=== PATIENT | male | born 1935 | race Caucasian/White ===

== ENCOUNTER → 2017-02-05 | Outpatient (CLI) | payer MEDICARE | END | disposition home or self-care (01) | LOC: RADCTMAIN 17:35 | PROVIDERS: ATTEND Otolaryngology | DX: Z01.812 Encounter for preprocedural laboratory examination (principal); D49.2 Neoplasm of unspecified behavior of bone, soft tissue, and skin | CPT/HCPCS: 82565; 84520 ==

== ENCOUNTER → 2017-02-15 | Outpatient (CLI) | payer MEDICARE ==
--- NOTE | 2017-02-15 15:53 | CT ---
"EXAMINATION TYPE: CT soft tissue neck wo con DATE OF EXAM: 02/15/2017 HISTORY: RIGHT EAR LUMP, SWELLING, AND REDNESS. HISTORY OF RIGHT EAR CANCER. COMPARISON: NONE CT DLP: 390 mGycm. Automated Exposure Control for Dose Reduction was Utilized. TECHNIQUE: CT scan of the neck is performed without contrast as the patient had abnormal labs despit e hydration. FINDINGS: Soft tissues: There is diffuse abnormal lobular thickening of the soft tissues and hyperemia of the c artilage of the right helix, tragus, and to a lesser degree of the antitragus. There is no local jose opathy with few nonenlarged adjacent lymph nodes. Few nonenlarged lymph nodes are also seen of the an terior and posterior cervical chains of the neck. Surgical clips are seen near the angle of the elizabeth ble and carotid bulb. A single surgical clip is seen just abutting the wall of the carotid bulb. Parotid/submandibular glands: No gross abnormality seen. 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 Both common carotid arteries are large in caliber with only minimal calcific atheromatous hart es. Atherosclerosis is seen of the supraclinoid and cavernous portions of the internal carotid arteri es. Small outpouching of the thoracic aorta likely represents a ductus diverticulum. Osseous Structures: Multilevel degenerative disc disease is seen of the cervical spine in addition to facet arthropathy and uncovertebral hypertrophy. 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 IMPRESSION: 1. Extensive lobular thickening of the helix, tragus, and to a lesser degree of the antitragus withou t local adenopathy in the head or neck. Findings are compatible with the patient's provided history o f right ear cancer. 2. 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 Vascular surgery consultation is recommended. A Red message has been communicated to Antoni Fatima DO via the [employer] | Critical Re sult system on 02/15/2017 3:50 PM, Message ID [id number]."
== END ==
LOC: RADCTMAIN 14:18
PROVIDERS: ATTEND Otolaryngology
DX: Z01.818 Encounter for other preprocedural examination (principal); D49.2 Neoplasm of unspecified behavior of bone, soft tissue, and skin
CPT/HCPCS: 36415; 70490; 82565; 84520

== ENCOUNTER → 2017-02-15 | Outpatient (CLI) | payer MEDICARE ==
[~2017-02-15] MED LIST: SODIUM CHLORIDE 0.45% 1,000 ML IV SCH; SODIUM CHLORIDE 0.9% 1,000 ML IV SCH
[2017-02-15 12:54] VITALS: BP 143/90; PULSE 611; RESP 20; TEMP 98.3
== END | disposition home or self-care (01) ==
LOC: PROCWHC3 12:14
PROVIDERS: ATTEND Otolaryngology
DX: E86.0 Dehydration (principal)
CPT/HCPCS: 96360

== ENCOUNTER → 2017-03-01 | Outpatient (CLI) | payer MEDICARE ==
[2017-03-01 14:25] LABS: EKG EKG PERFORMED
[2017-03-01 15:03] LABS: Anion Gap 9 mmol/L; Carbon Dioxide 23 mmol/L (22-30); Chloride 104 mmol/L (98-107); Potassium 5.1 mmol/L (3.5-5.1); Sodium 136 mmol/L (137-145)
== END | disposition home or self-care (01) ==
LOC: LABPAT 14:15
PROVIDERS: ATTEND Otolaryngology
DX: Z01.810 Encounter for preprocedural cardiovascular examination (principal); D49.2 Neoplasm of unspecified behavior of bone, soft tissue, and skin; I10 Essential (primary) hypertension; Z79.899 Other long term (current) drug therapy
CPT/HCPCS: 80051; 93005

== ENCOUNTER 2017-03-04 10:59 | Day surgery (SDC) | payer MEDICARE ==
[2017-03-02 18:43] VITALS: BMI 32.3
[~2017-03-04 10:59] MED LIST changes: +DEXAMETHASONE SOD PHOSPHATE 10 MG/ML 1 ML VIAL IV ONE; +FAMOTIDINE 20 MG/2 ML VIAL IV ONE; +LIDOCAINE 1% 20 ML VIAL (10MG/ML) FOR IV START INTRADERMA PRN; +ONDANSETRON 4 MG/2 ML VIAL IVP ONE; -SODIUM CHLORIDE 0.45% 1,000 ML IV SCH; -SODIUM CHLORIDE 0.9% 1,000 ML IV SCH; +ceFAZolin 2 GM in SODIUM CHLORIDE 0.9% 100 ML IVPB ONE
[2017-03-04] MEDS: LACTATED RINGERS 1,000 ML IV SCH ×2 (12:06→13:36)
[2017-03-04 12:40] LABS: Calcium 9.1 mg/dL (8.4-10.2); Potassium 5.2 mmol/L (3.5-5.1)
[2017-03-04] MEDS ORDERED: MIDAZOLAM 2 MG/2 ML VIAL ONE (13:40)
[2017-03-04] MEDS ORDERED: LIDOCAINE 1% INJ 10MG/ML (20 ML MDV) ONE (13:40)
[2017-03-04] MEDS ORDERED: PROPOFOL 10 MG/ML 20 ML VIAL IV ONE (13:40)
[2017-03-04] MEDS ORDERED: SUCCINYLCHOLINE CHLORIDE VIAL 200 MG/10 ML VIAL IV ONE (13:40)
[2017-03-04] MEDS ORDERED: ePHEDrine SULFATE/0.9% NACL/PF 50 MG/5 ML SYRINGE IV ONE (13:40)
[2017-03-04] MEDS ORDERED: fentaNYL (PF) 50 MCG/ML 2 ML AMP ONE (13:40)
[2017-03-04] MEDS ORDERED: LIDOCAINE 2%-EPI 1:100,000 20 ML VIAL SQ ONE ×2 (14:04)
[2017-03-04] MEDS ORDERED: BACITRACIN 500 UNIT/GM OINT 28.4 GM TUBE TOPICAL ONE (14:55)
[2017-03-04 15:15] VITALS: TEMP 97.2
--- NOTE | 2017-03-04 15:44 | P.OP ---
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 Implants: Anesthesia: GETA Surgeon: Antoni Fatima Estimated Blood Loss (ml): 25 Pathology: other (Right ear) Condition: stable Disposition: PACU Indications for Procedure: This patient is a malignancy of his right ear that has been present for over 10 years. Surgical removal was advised. All risks, benefits, and alternative therapies were discussed in detail. Consent was obtained and all questions were answered. Operative Findings: Patient had a 10 x 4 cm large right auricular skin cancer engulfing the entire ear Description of Procedure: This patient was taken to the operative room and placed in the supine position. A general inhalation anesthetic was administered the patient by mask and subsequently intubated with a cuffed endotracheal tube by the department of anesthesia with a functioning IV line in place. Patient was monitored throughout the entire case by the department of anesthesia. The right ear and face were sterilely prepped and draped in usual fashion. The ear was anesthetized with lidocaine 1% with epinephrine 1 100,000. With use of a 15 blade and cautery we remove the ear from the skull base following the auricular crease. The ear was removed completely and sent for permanent section. I did remove superior and inferiorly based margin for analysis. We marked these with those sutures which are adjacent sutures. Hemostasis was obtained with use of cauterization and suture. We then had a large defect with a open ear canal. All visible auricle was removed. We then elevated the postauricular and superior auricular skin we rotated that into position we resected the burrows triangles and we closed the flap deeply with a 3-0 PDS we closed the skin with a 40 rapid Vicryl. We then found that the meatus was stenotic and we did a meatal plasty by resecting the anterior auricular cartilage. We made an H-type incision resected the cartilage and rotated the tragal skin into the meatus for the meatus to stay open. The patient tolerated this well pressure dressing was applied and a follow-up is scheduled for 1 week.
[2017-03-04 16:11] VITALS: PULSE 61
[2017-03-04 16:26] VITALS: BP 136/72; RESP 18
== END 2017-03-04 16:35 | disposition home or self-care (01) ==
LOC: OR 10:59
PROVIDERS: ATTEND Otolaryngology
DX: C44.222 Squamous cell carcinoma of skin of right ear and external auricular canal (principal); L57.8 Other skin changes due to chronic exposure to nonionizing radiation; L57.0 Actinic keratosis; Q16.1 Congenital absence, atresia and stricture of auditory canal (external); I10 Essential (primary) hypertension; I25.10 Atherosclerotic heart disease of native coronary artery without angina pectoris; I73.9 Peripheral vascular disease, unspecified; N28.9 Disorder of kidney and ureter, unspecified; Z79.899 Other long term (current) drug therapy
CPT/HCPCS: 88305; 80048; 69120; 69310; J2250; J0330; J1100; J0690; J2405; J2001; J3010; J2704

== ENCOUNTER → 2017-08-18 | Outpatient (CLI) | payer MEDICARE ==
[2017-08-18 14:38] LABS: Basophils % (A) 0 %; Eosinophils # (A) 0.2 k/uL (0-0.7); Eosinophils % (A) 2 %; HCT 47.4 % (39.0-53.0); HGB 15.1 gm/dL (13.0-17.5); Lymphocytes # (A) 1.4 k/uL (1.0-4.8); Lymphocytes % (A) 18 %; MCH 28.9 pg (25.0-35.0); MCHC 31.9 g/dL (31.0-37.0); MCV 90.5 fL (80.0-100.0); Mean Platelet Volume 6.6; Monocytes # (A) 0.5 k/uL (0-1.0); Monocytes % (A) 6 %; Neutrophils % (A) 73 %; Platelet Count 272 k/uL (150-450); RBC 5.24 m/uL (4.30-5.90); RDW 13.5 % (11.5-15.5); WBC 8.2 k/uL (3.8-10.6)
[2017-08-18 14:45] LABS: Calcium 9.3 mg/dL (8.4-10.2); Magnesium 2.3 mg/dL (1.6-2.3); Phosphorus 3.7 mg/dL (2.5-4.5); Potassium 5.4 mmol/L (3.5-5.1); Total Bilirubin 0.5 mg/dL (0.2-1.3); Total Protein 7.3 g/dL (6.3-8.2); Uric Acid 6.9 mg/dL (3.5-8.5)
[2017-08-18 15:16] LABS: PSA Annual Screen 0.36 ng/mL (0.00-4.00)
[2017-08-18 18:56] LABS: Vitamin D 25 Hydroxy 12.7 ng/mL (30.0-100.0)
[2017-08-18 21:06] LABS: Parathyroid Hormone Intact 103.3 pg/mL (14.0-72.0)
== END | disposition home or self-care (01) ==
LOC: LABWHC1 13:36
PROVIDERS: ATTEND Family Medicine
DX: C67.9 Malignant neoplasm of bladder, unspecified (principal); I12.9 Hypertensive chronic kidney disease with stage 1 through stage 4 chronic kidney disease, or unspecified chronic kidney disease; N18.3 Chronic kidney disease, stage 3 (moderate); R35.1 Nocturia; Z12.5 Encounter for screening for malignant neoplasm of prostate
CPT/HCPCS: 80053; 83735; 84100; 84550; 85025; 82306; 83970; 82043; 82570; 36415; G0103

== ENCOUNTER → 2017-11-19 | Outpatient (CLI) | payer MEDICARE ==
[2017-11-19 15:39] LABS: Basophils % (A) 0 %; Eosinophils # (A) 0.4 k/uL (0-0.7); Eosinophils % (A) 5 %; HGB 13.3 gm/dL (13.0-17.5); Lymphocytes # (A) 1.3 k/uL (1.0-4.8); Lymphocytes % (A) 15 %; MCH 29.1 pg (25.0-35.0); MCHC 34.2 g/dL (31.0-37.0); MCV 85.1 fL (80.0-100.0); Mean Platelet Volume 6.9; Monocytes # (A) 0.6 k/uL (0-1.0); Monocytes % (A) 7 %; Neutrophils # (A) 5.9 k/uL (1.3-7.7); Neutrophils % (A) 70 %; Platelet Count 302 k/uL (150-450); RBC 4.58 m/uL (4.30-5.90); RDW 13.7 % (11.5-15.5); WBC 8.5 k/uL (3.8-10.6)
[2017-11-19 15:51] LABS: Albumin 3.7 g/dL (3.5-5.0); Calcium 9.4 mg/dL (8.4-10.2); Potassium 5.6 mmol/L (3.5-5.1); Total Bilirubin 0.6 mg/dL (0.2-1.3); Total Protein 6.6 g/dL (6.3-8.2)
== END | disposition home or self-care (01) ==
LOC: LABWHC1 15:22
PROVIDERS: ATTEND Radiology Radiation Oncology
DX: C07 Malignant neoplasm of parotid gland (principal); I95.9 Hypotension, unspecified
CPT/HCPCS: 36415; 80053; 85025

== ENCOUNTER 2017-11-24 16:17 | Inpatient (IN) | payer MEDICARE ==
[2017-11-24] MEDS ORDERED: SODIUM CHLORIDE 0.9% 1,000 ML IV STA (16:46)
[2017-11-24] MEDS: SODIUM CHLORIDE 0.9% 1,000 ML IV ONE (16:47)
--- NOTE | 2017-11-24 16:51 | ED ---
General Adult HPI - General Chief complaint: Weakness Stated complaint: Hypotension Time Seen by Provider: 11/24/17 16:36 Source: patient, family, RN notes reviewed Mode of arrival: wheelchair Limitations: no limitations - History of Present Illness Initial comments: Patient is a pleasant 82-year-old male presenting to the emergency department with reported low blood pressure. Patient is a very poor historian. Patient states he does feel somewhat weak today. Patient does admit to having some low back pain however states this is chronic for him for sometime between 1 and 2 years. Patient has known cancer of the right side of his neck. Patient is unclear if there is any other cancer or any details regarding this. Patient does reportedly received radiation therapy for this. No family is present - Related Data Home Medications Medication Instructions Recorded Confirmed Metoprolol Tartrate [Lopressor] 50 mg PO BID 02/15/17 11/24/17 Ergocalciferol [Vitamin D2] 50,000 unit PO Q7D 11/24/17 11/24/17 Lisinopril [Prinivil] 5 mg PO HS 11/24/17 11/24/17 Allergies Allergy/AdvReac Type Severity Reaction Status Date / Time No Known Allergies Allergy Verified 11/24/17 17:14 Review of Systems ROS Statement: Those systems with pertinent positive or pertinent negative responses have been documented in the HPI. ROS Other: All systems not noted in ROS Statement are negative. Constitutional: Denies: fever Eyes: Denies: eye pain ENT: Denies: ear pain Respiratory: Denies: cough Cardiovascular: Denies: chest pain Endocrine: Reports: fatigue Gastrointestinal: Denies: abdominal pain Genitourinary: Denies: dysuria Musculoskeletal: Reports: back pain Skin: Denies: rash Neurological: Denies: headache Past Medical History Past Medical History: Cancer, Renal Disease Additional Past Medical History / Comment(s): throat, bladder ,ear cancer, History of Any Multi-Drug Resistant Organisms: None Reported Past Surgical History: Bladder Surgery Past Psychological History: No Psychological Hx Reported Smoking Status: Former smoker Past Alcohol Use History: None Reported Past Drug Use History: None Reported General Exam Limitations: no limitations General appearance: alert, in no apparent distress Head exam: Present: atraumatic Eye exam: Present: normal appearance ENT exam: Present: normal oropharynx Neck exam: Present: other (Large right lateral neck mass with central ulcers. Size is approximately the size of a lemon.) Respiratory exam: Present: normal lung sounds bilaterally Cardiovascular Exam: Present: regular rate, normal rhythm GI/Abdominal exam: Present: soft, hernia (Reducible hernia). Absent: tenderness Rectal exam: Present: black stool Extremities exam: Present: normal inspection Back exam: Present: tenderness (Mild tenderness lower lumbar spine) Neurological exam: Present: alert Expanded Patient oriented to: Present: person, place. Absent: time Speech: Present: fluid speech Motor strength exam: RUE: 5, LUE: 5, RLE: 5, LLE: 5 Psychiatric exam: Present: normal affect, normal mood Skin exam: Present: normal color Course Vital Signs 11/24/17 11/24/17 11/24/17 16:22 16:51 17:35 Temperature 98.9 F Pulse Rate 55 L 53 L 54 L Respiratory 24 20 20 Rate Blood Pressure 79/53 136/55 133/60 O2 Sat by Pulse 100 100 100 Oximetry 11/24/17 11/24/17 18:40 19:08 Temperature Pulse Rate 57 L 56 L Respiratory 18 18 Rate Blood Pressure 115/54 94/60 O2 Sat by Pulse 98 100 Oximetry - Reevaluation(s) Reevaluation #1: 11/24/17 18:35 Family now is present and state patient is a no code. They wanted no CPR and no intubation/life-support. They state patient does have advanced cancer of the neck however they are unclear what stage it is. 11/24/17 19:36 Case was discussed in detail with Dr. Saucedo, who will admit for Dr. Navarro. Consult with gastroenterology. EKG Findings - EKG Comments: EKG Findings:: Junctional rhythm at 54. QRS 112. QT 452. QTC 428. Normal axis. Normal QRS. No acute ST change. Medical Decision Making - Lab Data Result diagrams: 11/24/17 16:41 11/24/17 16:41 Lab Results 11/24/17 11/24/17 11/24/17 Range/Units 16:41 16:41 16:41 WBC 13.1 H (3.8-10.6) k/uL RBC 2.86 L (4.30-5.90) m/uL Hgb 8.3 L D (13.0-17.5) gm/dL Hct 24.4 L (39.0-53.0) % MCV 85.3 (80.0-100.0) fL MCH 29.0 (25.0-35.0) pg MCHC 34.0 (31.0-37.0) g/dL RDW 14.3 (11.5-15.5) % Plt Count 365 (150-450) k/uL Neutrophils % 84 % Lymphocytes % 9 % Monocytes % 4 % Eosinophils % 2 % Basophils % 0 % Neutrophils # 11.0 H (1.3-7.7) k/uL Lymphocytes # 1.1 (1.0-4.8) k/uL Monocytes # 0.6 (0-1.0) k/uL Eosinophils # 0.2 (0-0.7) k/uL Basophils # 0.0 (0-0.2) k/uL PT (9.0-12.0) sec INR (<1.2) APTT (22.0-30.0) sec Sodium 124 L (137-145) mmol/L Potassium 5.8 H (3.5-5.1) mmol/L Chloride 92 L (98-107) mmol/L Carbon Dioxide 19 L (22-30) mmol/L Anion Gap 13 mmol/L BUN 104 H* (9-20) mg/dL Creatinine 2.00 H (0.66-1.25) mg/dL Est GFR (CKD-EPI)AfAm 35 (>60 ml/min/1.73 sqM) Est GFR (CKD-EPI)NonAf 30 (>60 ml/min/1.73 sqM) Glucose 122 H (74-99) mg/dL Plasma Lactic Acid Butch (0.7-2.0) mmol/L Calcium 9.5 (8.4-10.2) mg/dL Phosphorus 3.6 (2.5-4.5) mg/dL Magnesium 2.1 (1.6-2.3) mg/dL Total Bilirubin 0.4 (0.2-1.3) mg/dL AST 18 (17-59) U/L ALT 25 (21-72) U/L Alkaline Phosphatase 65 (38-126) U/L Total Creatine Kinase 22 L (55-170) U/L CK-MB (CK-2) 0.8 (0.0-2.4) ng/mL CK-MB (CK-2) Rel Index 3.6 Troponin I <0.012 (0.000-0.034) ng/mL Total Protein 5.7 L (6.3-8.2) g/dL Albumin 3.2 L (3.5-5.0) g/dL Stool Occult Blood (Negative) 11/24/17 11/24/17 11/24/17 Range/Units 16:41 16:41 18:30 WBC (3.8-10.6) k/uL RBC (4.30-5.90) m/uL Hgb (13.0-17.5) gm/dL Hct (39.0-53.0) % MCV (80.0-100.0) fL MCH (25.0-35.0) pg MCHC (31.0-37.0) g/dL RDW (11.5-15.5) % Plt Count (150-450) k/uL Neutrophils % % Lymphocytes % % Monocytes % % Eosinophils % % Basophils % % Neutrophils # (1.3-7.7) k/uL Lymphocytes # (1.0-4.8) k/uL Monocytes # (0-1.0) k/uL Eosinophils # (0-0.7) k/uL Basophils # (0-0.2) k/uL PT 10.2 (9.0-12.0) sec INR 1.0 (<1.2) APTT 23.5 (22.0-30.0) sec Sodium (137-145) mmol/L Potassium (3.5-5.1) mmol/L Chloride (98-107) mmol/L Carbon Dioxide (22-30) mmol/L Anion Gap mmol/L BUN (9-20) mg/dL Creatinine (0.66-1.25) mg/dL Est GFR (CKD-EPI)AfAm (>60 ml/min/1.73 sqM) Est GFR (CKD-EPI)NonAf (>60 ml/min/1.73 sqM) Glucose (74-99) mg/dL Plasma Lactic Acid Butch 1.1 (0.7-2.0) mmol/L Calcium (8.4-10.2) mg/dL Phosphorus (2.5-4.5) mg/dL Magnesium (1.6-2.3) mg/dL Total Bilirubin (0.2-1.3) mg/dL AST (17-59) U/L ALT (21-72) U/L Alkaline Phosphatase (38-126) U/L Total Creatine Kinase (55-170) U/L CK-MB (CK-2) (0.0-2.4) ng/mL CK-MB (CK-2) Rel Index Troponin I (0.000-0.034) ng/mL Total Protein (6.3-8.2) g/dL Albumin (3.5-5.0) g/dL Stool Occult Blood Positive (Negative) - Radiology Data Radiology results: image reviewed (Lumbar spine x-ray shows no acute fracture or dislocation. There is degenerative disc disease. Anterolisthesis L4/L5. Chest x-ray shows no acute process.) Disposition Clinical Impression: Prerenal azotemia, GI hemorrhage Disposition: ADMITTED IP TO THIS [facility] Condition: Serious Referrals: Rossana Navarro MD [Primary Care Provider] - 1-2 days Decision Time: 19:36
[2017-11-24 17:09] LABS: Albumin 3.2 g/dL (3.5-5.0); Basophils % (A) 0 %; Calcium 9.5 mg/dL (8.4-10.2); Eosinophils # (A) 0.2 k/uL (0-0.7); Eosinophils % (A) 2 %; HCT 24.4 % (39.0-53.0); Lymphocytes # (A) 1.1 k/uL (1.0-4.8); Lymphocytes % (A) 9 %; MCV 85.3 fL (80.0-100.0); Magnesium 2.1 mg/dL (1.6-2.3); Monocytes # (A) 0.6 k/uL (0-1.0); Monocytes % (A) 4 %; Neutrophils % (A) 84 %; Phosphorus 3.6 mg/dL (2.5-4.5); Platelet Count 365 k/uL (150-450); Potassium 5.8 mmol/L (3.5-5.1); RBC 2.86 m/uL (4.30-5.90); RDW 14.3 % (11.5-15.5); Total Bilirubin 0.4 mg/dL (0.2-1.3); Total Protein 5.7 g/dL (6.3-8.2); WBC 13.1 k/uL (3.8-10.6)
[2017-11-24 17:11] LABS: HGB 8.3 gm/dL (13.0-17.5); Partial Thromboplastin Time 23.5 sec (22.0-30.0); Prothrombin Time 10.2 sec (9.0-12.0)
[2017-11-24 17:17] LABS: Creatine Kinase 22 U/L (55-170)
[2017-11-24 17:30] LABS: Creatine Kinase MB 0.8 ng/mL (0.0-2.4); Troponin I <0.012 ng/mL (0.000-0.034)
[2017-11-24] MEDS ORDERED: MORPHINE SULFATE 4 MG/ML SYRINGE IVP STA ×2 (17:35→20:42)
--- NOTE | 2017-11-24 17:38 | XR ---
EXAMINATION TYPE: XR lumbar spine 2 or 3V DATE OF EXAM: 11/24/2017 CLINICAL HISTORY: pain TECHNIQUE: Three views of the lumbar spine are submitted. COMPARISON: None. FINDINGS: There are 5 lumbar type vertebral bodies identified. The lumbar spine shows satisfactory alignment w ithout evidence of acute fracture or dislocation. Vertebral body heights are within normal limits. Severe degenerative disc space narrowing L4-5 and L5-S1 as well as facet joints. 4.5 mm anterolisthes is L4 and L5. The overlying soft tissue appears unremarkable. IMPRESSION: No acute fracture or dislocation is seen in the lumbar spine. ICD 10 NO FRACTURE, INITIAL EVALUATION
--- NOTE | 2017-11-24 17:39 | XR ---
EXAMINATION TYPE: XR chest 2V DATE OF EXAM: 11/24/2017 COMPARISON: NONE HISTORY: Shortness of breath TECHNIQUE: Frontal and lateral views of the chest are obtained. FINDINGS: Scattered senescent parenchymal changes noted. Hyperinflation compatible with COPD. Ectasia thoracic aorta. No evidence for infiltrate. No evidence for atelectasis. Heart size is stable. Mediastinal structures are stable and grossly unremarkable. No evidence for hilar prominence. Degenerative changes dorsal spine. IMPRESSION: 1. No evidence for acute pulmonary disease.
[2017-11-24] MEDS ORDERED: PANTOPRAZOLE 40 MG/10 ML VIAL IVP STA (18:34)
[2017-11-24] MEDS ORDERED: NALOXONE 0.4 MG/ML 1 ML VIAL IV PRN (19:37)
[2017-11-24] MEDS ORDERED: SODIUM CHLORIDE 0.9% 500 ML IV STA (19:40)
[2017-11-24] MEDS: SODIUM CHLORIDE 0.9% 1,000 ML IV SCH (20:52)
[2017-11-24] MEDS ORDERED: MELATONIN 3 MG TABLET PO PRN (21:57)
[2017-11-24] MEDS ORDERED: MORPHINE SULFATE 4 MG/ML SYRINGE IV PRN (21:57)
[2017-11-24] MEDS ORDERED: ACETAMINOPHEN TAB 325 MG TAB PO PRN (21:57)
[2017-11-24] MEDS ORDERED: ONDANSETRON 4 MG/2 ML VIAL IVP PRN (21:57)
[2017-11-24] MEDS: traMADol 50 MG TAB PO PRN (22:46)
--- NOTE | 2017-11-24 23:11 | CT ---
EXAMINATION TYPE: CT ChestAbdPelvis wo con DATE OF EXAM: 11/24/2017 COMPARISON: NONE HISTORY: History of kidney, bladder, ear and neck cancer. Low back pain, low hemoglobin, right lower hernia that doctor is unable to reduce, nausea nd vomiting. CT DLP: 1108.4 mGycm. Automated Exposure Control for Dose Reduction was Utilized. TECHNIQUE: CT scan of the thorax, abdomen and pelvis is performed without IV contrast. FINDINGS: Thoracic aorta is atheromatous and dilated. Descending aorta measures up to 5.5 cm. The ascending aor ta measures 4.8 cm. There is no mediastinal adenopathy. There is some patchy interstitial linear dens ity in the mid and lower lung reardon. There is no evidence of a pulmonary mass. There are multiple calcified gallstones. There is an irregular 1.5 cm hypodensity in the anterior rig ht lobe of the liver. Bile ducts are not dilated. The spleen appears normal. There is no pancreatic m ass. Upper abdominal aorta measures 6.3 cm. There is aneurysmal change in the mid and lower abdominal aorta extending into the iliac arteries. The right common iliac artery measures 4 cm. The distal abd ominal aorta measures 4 cm. There is small ventral hernia on the right side of the mid abdomen that c ontains fat. There is marked atrophy of the right kidney. Left kidney shows fairly normal size with no hydronephro sis. There is a 1 cm hypodense area in the posterior left kidney. There is no retroperitoneal adenopa thy. There is no ascites. There is a catheter in the urinary bladder. There is fluid level in the uri nary bladder. I see no intestinal wall thickening. There are no dilated loops. There is no ascites. T horacic and lumbar spine appear intact. CONCLUSION: Fibrotic changes and atelectasis in the mid and lower lung reardon. Cardiomegaly. 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 Calcified gallstones. No dilated ducts. Atrophic right kidney. Hypodense nonspecific small area in th e posterior left kidney. Left renal ultrasound might be helpful for further evaluation. Hypodense ant erior focus in the right lobe of the liver is small and is of uncertain clinical significance. Small right-sided ventral hernia. Irregular thickening of the right side of the urinary bladder. Bladder is not well evaluated. Bladder is nondistended. This could relate to tumor.
[2017-11-24 23:14] LABS: Basophils % (A) 0 %; Eosinophils # (A) 0.2 k/uL (0-0.7); Eosinophils % (A) 2 %; HGB 7.4 gm/dL (13.0-17.5); Lymphocytes # (A) 1.1 k/uL (1.0-4.8); Lymphocytes % (A) 12 %; MCH 28.6 pg (25.0-35.0); MCV 89.5 fL (80.0-100.0); Mean Platelet Volume 6.8; Monocytes # (A) 0.6 k/uL (0-1.0); Monocytes % (A) 6 %; Neutrophils # (A) 7.1 k/uL (1.3-7.7); Neutrophils % (A) 78 %; Platelet Count 309 k/uL (150-450); RBC 2.57 m/uL (4.30-5.90); RDW 14.6 % (11.5-15.5); WBC 9.1 k/uL (3.8-10.6)
[2017-11-24 23:25] LABS: Albumin 2.8 g/dL (3.5-5.0); Calcium 8.8 mg/dL (8.4-10.2); Potassium 5.8 mmol/L (3.5-5.1); Total Bilirubin 0.4 mg/dL (0.2-1.3); Total Protein 5.2 g/dL (6.3-8.2)
[2017-11-24] MEDS ORDERED: SODIUM CHLORIDE 0.9% 500 ML IV ONE (23:32)
[2017-11-24] MEDS ORDERED: CALCIUM CHLORIDE 1,000 MG in SODIUM CHLORIDE 0.9% 100 ML IVPB STA (23:33)
[2017-11-24] MEDS ORDERED: SODIUM POLYSTYRENE SULFONATE 15 GM/60 ML BOTTLE PO STA (23:35)
--- NOTE | 2017-11-24 23:38 | P.HPIM ---
History of Present Illness H&P Date: 11/24/17 Chief Complaint: back pain Patient is an 37 yo male with a history of multiple cancers (throat, neck, ear, bladder, kidney cancer), HTN, and chronic kidney disease who presented to the ER from the radiation oncology office due to worsening back pain. In the ER he underwent an extensive evaluation. He was found to be bradycardic on arrival and hypotensive with a blood pressure 79/53. He received 1 L bolus and his blood pressure escalated to 136/55. His laboratory analysis showed a leukocytosis of 13.1, hemoglobin of 8.3 (was 13.3 11/19/17), hyponatremia with a sodium of 124, potassium 5.8, chloride 92, carbon dioxide 19 , BUN 104, and creatinine of 2. He underwent a chest x-ray which showed no acute process. He underwent lumbar spine radiographs which showed lumbar disc disease and arthritis. He then received 2 doses of morphine for pain control and was admitted to the selective care unit for further monitoring. Patient seen and examined the selective care unit with nursing present. He states that he has been having back and neck pain. Today he became so severe that he could not handle it anymore and he therefore came to the emergency department. He reports that his back pain is in his lower spine more on the right. It is intermittent and has been worsening over the last month. He is unable to tell me more about the pain because he says "I can't remember". He states that his memory has been getting worse since receiving radiation for his tumor on his neck. He reports decreased appetite with significant weight loss. He has had nausea, any vomiting, and intermittent diarrhea. He knows that he has not been eating and drinking well. He denies any chest pain shortness of breath, lightheadedness, dizziness, presyncope, chills, fevers, and abdominal pain. Has a significant right-sided hernia which he states is unchanged and is not painful. He knows that he has problems with chronic kidney disease. He knows his PCP is Dr. Navarro but is unsure the name of his oncologist. He is unsure if he had any blood in his stools he is legally blind and cannot tell. I did talk with his granddaughter Esperanza with been helping him and his get to appointments recently. We did discuss the severity of his condition including his elevated BUN, his profound anemia, his hyperkalemia, and his low sodium levels I told her that he is critical at this point in time as it appears that he is likely bleeding somewhere but we are unsure. 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 She states that she believes it is 7 cm in nature. She has been following this at [facility]. He was determined to weak to undergo treatment for this. She states it was not in his abdominal area. He is a DO NOT RESUSCITATE. I told her we'll try to attempt to get records from [facility]. I did report to her that we can try to Scan his chest abdomen and pelvis to assess for worsening aortic aneurysm or aortic dissection however this require contrast and concern for worsening kidney function and possible need for dialysis. She would prefer to hold off on CAT scan with contrast and attempt to get an echocardiogram in the morning and cardiology consultation. She is aware that if his aorta is rapidly expanding this could be life- threatening, but is aware that he was deemed not a surgical candidate for the past. Review of Systems Positives: + Back pain, + neck pain, + decreased appetite, + weight loss, + diarrhea, + nausea, + vomiting Pertinent positives and negatives as discussed in HPI, a complete review of systems was performed and all other systems are negative. Past Medical History Past Medical History: Cancer, Renal Disease Additional Past Medical History / Comment(s): Hypertension. Throat, neck, ears , renal, and bladder cancer. Legally blind. Chronic kidney disease. 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 - Past Family History Father Family Medical History: CVA/TIA Mother Family Medical History: No Reported History Medications and Allergies Home Medications Medication Instructions Recorded Confirmed Type Metoprolol Tartrate [Lopressor] 50 mg PO BID 02/15/17 11/24/17 History Ergocalciferol [Vitamin D2] 50,000 unit PO Q7D 11/24/17 11/24/17 History Lisinopril [Prinivil] 5 mg PO HS 11/24/17 11/24/17 History Allergies Allergy/AdvReac Type Severity Reaction Status Date / Time No Known Allergies Allergy Verified 11/24/17 17:14 Physical Exam Osteopathic Statement: *. No significant issues noted on an osteopathic structural exam other than those noted in the History and Physical/Consult. Vitals: Vital Signs Temp Pulse Resp BP Pulse Ox 11/24/17 19:50 54 L 16 112/53 100 11/24/17 19:08 56 L 18 94/60 100 11/24/17 18:40 57 L 18 115/54 98 11/24/17 17:35 54 L 20 133/60 100 11/24/17 16:51 53 L 20 136/55 100 11/24/17 16:22 98.9 F 55 L 24 79/53 100 Intake and Output 11/24/17 11/24/17 11/24/17 06:59 14:59 22:59 Other: Weight 97.522 kg General: Ill-appearing, mild distress, appears at stated age, normal weight Derm: Large mass extruding from the right neck with central erosion, bleeding, and serous drainage. no unusual rashes/lesions multiple small ecchymoses, warm , dry Head: atraumatic, normocephalic, symmetric Eyes: EOMI, no lid lag, anicteric sclera, pupils equal round reactive to light ENT: Nose atraumatic, no thrush, no pharyngeal erythema, removal of right earlobe with flap placement Neck: No thyromegaly, no cervical lymphadenopathy, trachea midline, supple Mouth: no lip lesion, mucus membranes moist Cardiovascular: S1S2 reg, no murmur, positive posterior tibial pulse bilateral, no edema, capillary refill less than 2 seconds Lungs: Decreased breath sounds bilaterally, no rhonchi, no rales , no accessory muscle use Abdominal: soft, nontender to palpation, no guarding, no appreciable organomegaly, normal bowel sounds Ext: no gross muscle atrophy, muscle strength 3-4 out of 5 in all 4 extremities grossly, no contractures, Neuro: CN II-XI grossly intact, light touch intact all 4 extremities, finger to nose within normal limits, Psych: Alert, oriented to year, place, recent Mother's Day. Unable to tell me month.He is having slowed thinking, appropriate affect Results CBC & Chem 7: 11/24/17 16:41 11/24/17 16:41 Labs: Abnormal Lab Results - Last 24 Hours (Table) 11/24/17 11/24/17 11/24/17 Range/Units 16:41 16:41 16:41 WBC 13.1 H (3.8-10.6) k/uL RBC 2.86 L (4.30-5.90) m/uL Hgb 8.3 L D (13.0-17.5) gm/dL Hct 24.4 L (39.0-53.0) % Neutrophils # 11.0 H (1.3-7.7) k/uL Sodium 124 L (137-145) mmol/L Potassium 5.8 H (3.5-5.1) mmol/L Chloride 92 L (98-107) mmol/L Carbon Dioxide 19 L (22-30) mmol/L BUN 104 H* (9-20) mg/dL Creatinine 2.00 H (0.66-1.25) mg/dL Glucose 122 H (74-99) mg/dL Total Creatine Kinase 22 L (55-170) U/L Total Protein 5.7 L (6.3-8.2) g/dL Albumin 3.2 L (3.5-5.0) g/dL Comments: Lumbar [id number] reviewed EKG is reviewed by myself revealed sinus bradycardia at a rate of [address]-T wave changes. Chest x-ray: report reviewed Thrombosis Risk Factor Assmnt - DVT/VTE Prophylaxis DVT/VTE Prophylaxis: Mechanical Prophylaxis ordered - Choose All That Apply Any of the Below Risk Factors Present?: Yes Each Risk Factor Represents 3 Points: Age 75 years or older Thrombosis Risk Factor Assessment Total Risk Factor Score: 3 Thrombosis Risk Factor Assessment Level: Moderate Risk Assessment and Plan Assessment: Acute on chronic neck and low back pain with acute anemia -Check CT chest, abdomen, pelvis without contrast -we'll attempt to rule out any etiology of cancerous tumor in the abdomen or pelvis or possible compression fracture or aortic disease. I realize that aortic evaluation will be suboptimal without contrast however with his acute on chronic kidney disease family would not want to take a chance of contrast exposure at this point in time -Pain control -PT OT evaluation in a.m. if CT unrevealing Acute anemia, undetermined etiology -Patient is unable to tell me if he has had blood in his stool but did have a positive Hemoccult in the ER -IV PPI twice a day, CBC every 6 hours, consult GI -Check iron studies -Type and screen Hyponatremia, hyperkalemia, and acute kidney injury on chronic kidney disease stage III -Suspect secondary to dehydration with poor oral intake on top of MARQUES inhibitor use and possible GI bleed -IV fluids -Electrolytes every 6 hours 2 -Consult nephrology -Mayers catheter for strict I's and O's and secondary to no voiding today per granddaughter -Hold lisinopril Non-anion gap metabolic acidosis likely secondary to renal disease -Treatment as above - if acidosis does not improve with NS then consider switch to D5 with 150 sodium bicarb. Neck, throat, ER, kidney, and bladder cancer -Consult Dr. Durand -Poor prognosis Hypertension, currently hypotensive -Hold beta tri and MARQUES inhibitor -Follow blood pressures Surrogate decision-maker: - Jazmin Sandra CODE STATUS: DNR DVT prophylaxis: SCDs Discussed with: Patient, ED physicain, Nursing, Granddaughter Esperanza Anticipated discharge: 3-[address]: home with home health, ? hospice A total of 75 minutes was spent on the care of this complex patient more than 50 % of the time was spent in counseling and care coordination.
[2017-11-25] MEDS: SODIUM CHLORIDE 0.9% 1,000 ML IV ONE (00:14)
[2017-11-25] MEDS ORDERED: CYCLOBENZAPRINE 5 MG TAB PO PRN (00:26)
[2017-11-25] MEDS ORDERED: ACETAMINOPHEN IV (For NPO) 1,000 MG in EMPTY BAG 1 BAG IVPB STA (00:26)
[2017-11-25 00:47] LABS: Appearance,Urine Turbid (Clear); Bacteria,Urine Few /hpf; Bilirubin,Urine Negative (Negative); Blood,Urine Large (Negative); Color,Urine Red; Glucose,Urine (UA) Negative (Negative); Ketones,Urine Negative (Negative); Leukocyte Esterase,Urine Large (Negative); Nitrite,Urine Negative (Negative); PH, Urine 5.5 (5.0-8.0); Protein,Urine 2+ (Negative); RBC,Urine >182 /hpf (0-5); Specific Gravity,Urine 1.017 (1.001-1.035); Urobilinogen,Urine <2.0 mg/dL (<2.0); WBC,Urine >182 /hpf (0-5)
[2017-11-25] MEDS: SODIUM CHLORIDE 0.9% 1,000 ML IV SCH ×2 (03:59→11:11)
[2017-11-25] MEDS ORDERED: SODIUM CHLORIDE 0.9% 500 ML IV ONE (04:25)
--- NOTE | 2017-11-25 04:57 | P.PN ---
Progress Note - Text Progress Note Date: 11/25/17 Hospitalist Interval Note CTSP Called by nursing that patients BP dropped to 74/33. Went to see patient after orders placed for bolus. Patient seen and examined at bedside. He states that his neck pain is resolved after the last dose of medication helped. He denies lightheadedness, dizziness, SOB, chest pain, passing out. No complaints currently. No family present at bedside. Nursing had just attempted to call and granddaughter and did not receive an answer. Vital signs reviewed General: non toxic, mild distress, appears at stated age Derm: warm, dry Head: atraumatic, normocephalic, symmetric Eyes: EOMI, no lid lag, anicteric sclera Mouth: no lip lesion, mucus membranes moist Cardiovascular: S1S2 reg, no murmur, positive posterior tibial pulse bilateral, Lungs: decreased bs bilateral, no rhonchi, no rales , no accessory muscle use Psych: Alert, oriented, appropriate affect Assessment/Plan: Symptomatic anemia- NS 500 cc bolus, 2 units pRBC, stat CBC (was schedule for 5 am), vitals q 30 mins X 4. nuero checks q1 hour X 1, low thresh hold for transfer to ICU pending labs. Ensure obtaining 2 PIVs. Hematuria with possible UTI- zosyn 3.375g q 12 hours due to renal function. Urine culture, Neck Pain, currently resolved- Patient and family are poor historians of his currently illness. After complaining of neck pain earlier in the night I again reviewed medical records and found CT soft tissue neck from 02/2017 which showed a soft tissue mass and a possible aneurysm vs pseudoanurysm near the right common carotid/bulb. I ordered a urgent CT of the soft tissue of the neck, as soon as BP stable we will then proceed to CT. Had spoken with Granddaughter regarding poor prognosis earlier in the evening, she was planning on coming back up to hospital. Nursing unable to contact at this time. A total of 32 minutes of critical care time was spent on this complex patient
[2017-11-25 05:29] LABS: MCH 28.5 pg (25.0-35.0); MCHC 32.6 g/dL (31.0-37.0); MCV 87.5 fL (80.0-100.0); Platelet Count 278 k/uL (150-450); RBC 2.21 m/uL (4.30-5.90); RDW 14.7 % (11.5-15.5); WBC 7.6 k/uL (3.8-10.6)
[2017-11-25 05:39] LABS: HGB 6.3 gm/dL (13.0-17.5)
[2017-11-25 05:40] LABS: HCT 19.3 % (39.0-53.0)
[2017-11-25 05:42] LABS: Albumin 2.3 g/dL (3.5-5.0); INR 1.1 (<1.2); Phosphorus 3.8 mg/dL (2.5-4.5); Potassium 5.6 mmol/L (3.5-5.1); Prothrombin Time 10.4 sec (9.0-12.0); Total Bilirubin 0.3 mg/dL (0.2-1.3); Total Protein 4.5 g/dL (6.3-8.2)
[2017-11-25 06:16] LABS: Glucose,Whole Blood 90 mg/dL (75-99)
[2017-11-25] MEDS ORDERED: CALCIUM CHLORIDE 1,000 MG in SODIUM CHLORIDE 0.9% 100 ML IVPB STA (06:16)
[2017-11-25] MEDS ORDERED: NOREPINEPHRIN 4 MG-0.9% NS PMX 4 MG/250 ML ML IV SCH (06:45)
[2017-11-25] MEDS ORDERED: PANTOPRAZOLE 40 MG/10 ML VIAL IV SCH (09:00)
--- NOTE | 2017-11-25 09:07 | P.PN ---
Progress Note - Text Progress Note Date: 11/25/17 I did evaluate patient. Currently feeling comfortable with no pain. I did discuss with patient and daughter present. Regarding options. We did not feel with his advanced cancer that he is a candidate for any workup. We will suggest comfort measures. Seems like family might be leaning towards comfort measures. Not sure that they are comfortable with hospice. We'll await for patient's to arrive and then we'll readdress CODE STATUS
[2017-11-25] MEDS: PANTOPRAZOLE 40 MG/10 ML VIAL IV SCH ×2 (09:14→21:51)
[2017-11-25 10:02] VITALS: BMI 29.4
--- NOTE | 2017-11-25 10:17 | P.CONS ---
History of Present Illness - Reason for Consult Consult date: 11/25/17 GI bleed Requesting physician: Natalie Saucedo - History of Present Illness 82-year-old male legally blind admitted with low blood pressures, heart rate, weakness with a history of chronic kidney disease thoracic aortic aneurysm deemed nonsurgical, multiple cancers including ear/neck throat ear bladder kidney with radiation treatment. Patient was sent to the ER yesterday from radiation oncology with concerns for worsening back pain. He was receiving radiation to his right neck mass. Consult for GI bleed. No overt bleeding such as hematemesis hematochezia or melena. Admission hemoglobin 8.3 presently 6.3. MCV 85. White count 13.1 presently 7.6. INR 1.1. Sodium 124. Potassium 5.8. BUN 104. Creatinine 2.0. LFTs within normal limits. Urinalysis large blood and leukocyte esterase and WBC. Stool Hemoccult positive. Previous hemoglobin 11/19/[address] chest abdomen and pelvis without contrast descending thoracic aorta was dilated up to 5.5 cm. Descending order measures 4.8 cm. Upper abdominal aorta measures 6.3 cm. 1.5 cm hypodensity in the anterior right lobe of the liver. No bile duct dilation. Irregular thickening right side of urinary bladder not well evaluated possible tumor. 2 units of blood ordered. Afebrile. Family at bedside; no recent EGD or colonoscopy. Review of Systems Constitutional: Denies fever, chills, sweats, weight gain, or loss. HEENT: Negative for migraines, legally blind, earaches, drainage, tinnitus, oral mucosal lesions, dysphagia, or odynophagia. Cardiac: Negative for chest pain, arrhythmias, or palpitation. Respiratory: Negative for shortness of breath, hemoptysis, cough, or sputum production. Gastrointestinal: See HPI for pertinent findings. Genitourinary: Negative for hematuria, urgency, frequency, polyuria, dysuria, or penile discharge. Musculoskeletal: Persistent chronic lower back pain. Neurologic: Negative for stroke or TIA. Endocrine: Negative for thyroid problems. Skin: Negative for rash or itching. Psychiatric: Negative history for depression and anxiety Past Medical History Past Medical History: Cancer, Renal Disease Additional Past Medical History / Comment(s): Hypertension. Throat, neck, ears , renal, and bladder cancer. Legally blind. Chronic kidney disease. 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 Past Anesthesia/Blood Transfusion Reactions: Unable to Obtain Past Psychological History: No Psychological Hx Reported Smoking Status: Former smoker Past Alcohol Use History: None Reported Past Drug Use History: None Reported - Past Family History Father Family Medical History: CVA/TIA Mother Family Medical History: No Reported History Medications and Allergies Home Medications Medication Instructions Recorded Confirmed Type Metoprolol Tartrate [Lopressor] 50 mg PO BID 02/15/17 11/24/17 History Ergocalciferol [Vitamin D2] 50,000 unit PO Q7D 11/24/17 11/24/17 History Lisinopril [Prinivil] 5 mg PO HS 11/24/17 11/24/17 History Allergies Allergy/AdvReac Type Severity Reaction Status Date / Time No Known Allergies Allergy Verified 11/24/17 17:14 Physical Exam Vitals: Vital Signs Temp Pulse Pulse Resp BP BP Pulse Ox 11/25/17 05:51 44 L 14 81/43 11/25/17 05:43 43 L 14 81/40 96 11/25/17 05:21 96.7 F L 48 L 14 91/45 99 11/25/17 05:11 96.8 F L 57 L 14 97/48 97 11/25/17 04:54 95/45 11/25/17 04:45 49 L 92/40 11/25/17 04:25 50 L 14 84/33 96 11/25/17 04:00 96.8 F L 47 L 16 77/33 95 11/25/17 00:30 69 16 133/66 94 L 11/25/17 00:00 97.6 F 59 L 16 134/61 96 11/24/17 20:30 97 F L 53 L 16 124/60 99 11/24/17 19:50 54 L 16 112/53 100 11/24/17 19:08 56 L 18 94/60 100 11/24/17 18:40 57 L 18 115/54 98 11/24/17 17:35 54 L 20 133/60 100 11/24/17 16:51 53 L 20 136/55 100 11/24/17 16:22 98.9 F 55 L 24 79/53 100 Intake and Output 11/24/17 11/25/17 11/25/17 22:59 06:59 14:59 Intake Total 2625 Output Total 140 Balance 2485 Intake: IV 2625 ACETAMINOPHEN IV (For NPO 400 ) 1,000 mg In Empty Bag 1 bag @ 400 mls/hr IVPB ONCE STA Rx#:[id number] Calcium Chloride 1,000 mg 100 In Sodium Chloride 0.9% 100 ml @ 100 mls/hr IVPB ONCE STA Rx#:[id number] Sodium Chloride 0.9% 1, 1125 000 ml @ 125 mls/hr IV . Q8H FELICE Rx#:[id number] Sodium Chloride 0.9% 1, 1000 000 ml @ 999 mls/hr IV . Q1H1M ONE Rx#:[id number] Blood Product 0 Rc As-3 Unit 0 [id number] Output: Urine 140 Other: Voiding Method Indwelling Catheter Weight 97.522 kg 98.5 kg General appearance: The patient is alert, oriented, in no acute distress. HET: Head is normocephalic and atraumatic. Pupils are equal and reactive. Oropharynx is clear without lesions. Neck: Right neck mass with dressing. Supple without lymphadenopathy. Trachea midline. Heart: S1 S2. Regular rate and rhythm. Lungs: No crackles or wheezes are heard. Abdomen: Soft, nontender, nondistended with bowel sounds. No peritoneal signs. No palpable organomegaly or masses. Extremities: Mayers clear edy urine. Neurological: No focal deficits. Strength and sensation are grossly intact. Results CBC & Chem 7: 11/25/17 22:28 11/25/17 15:13 Labs: Abnormal Lab Results - Last 24 Hours (Table) 11/24/17 11/24/17 11/24/17 Range/Units 16:41 16:41 16:41 WBC 13.1 H (3.8-10.6) k/uL RBC 2.86 L (4.30-5.90) m/uL Hgb 8.3 L D (13.0-17.5) gm/dL Hct 24.4 L (39.0-53.0) % Neutrophils # 11.0 H (1.3-7.7) k/uL Sodium 124 L (137-145) mmol/L Potassium 5.8 H (3.5-5.1) mmol/L Chloride 92 L (98-107) mmol/L Carbon Dioxide 19 L (22-30) mmol/L BUN 104 H* (9-20) mg/dL Creatinine 2.00 H (0.66-1.25) mg/dL Glucose 122 H (74-99) mg/dL AST (17-59) U/L Lactate Dehydrogenase (313-618) U/L Total Creatine Kinase 22 L (55-170) U/L Total Protein 5.7 L (6.3-8.2) g/dL Albumin 3.2 L (3.5-5.0) g/dL Urine Protein (Negative) Urine Blood (Negative) Ur Leukocyte Esterase (Negative) Urine RBC (0-5) /hpf Urine WBC (0-5) /hpf Urine WBC Clumps (None) /hpf Urine Bacteria (None) /hpf Crossmatch 11/24/17 11/24/17 11/24/17 Range/Units 16:41 22:54 22:54 WBC (3.8-10.6) k/uL RBC 2.57 L (4.30-5.90) m/uL Hgb 7.4 L (13.0-17.5) gm/dL Hct 23.0 L (39.0-53.0) % Neutrophils # (1.3-7.7) k/uL Sodium 124 L (137-145) mmol/L Potassium 5.8 H (3.5-5.1) mmol/L Chloride 95 L (98-107) mmol/L Carbon Dioxide 18 L (22-30) mmol/L BUN 97 H* (9-20) mg/dL Creatinine 2.00 H (0.66-1.25) mg/dL Glucose (74-99) mg/dL AST 16 L (17-59) U/L Lactate Dehydrogenase (313-618) U/L Total Creatine Kinase (55-170) U/L Total Protein 5.2 L (6.3-8.2) g/dL Albumin 2.8 L (3.5-5.0) g/dL Urine Protein (Negative) Urine Blood (Negative) Ur Leukocyte Esterase (Negative) Urine RBC (0-5) /hpf Urine WBC (0-5) /hpf Urine WBC Clumps (None) /hpf Urine Bacteria (None) /hpf Crossmatch See Detail 11/25/17 11/25/17 11/25/17 Range/Units 00:24 04:37 04:37 WBC (3.8-10.6) k/uL RBC 2.21 L (4.30-5.90) m/uL Hgb 6.3 L* (13.0-17.5) gm/dL Hct 19.3 L* (39.0-53.0) % Neutrophils # (1.3-7.7) k/uL Sodium 123 L (137-145) mmol/L Potassium 5.6 H (3.5-5.1) mmol/L Chloride 97 L (98-107) mmol/L Carbon Dioxide 19 L (22-30) mmol/L BUN 91 H* (9-20) mg/dL Creatinine 2.10 H (0.66-1.25) mg/dL Glucose (74-99) mg/dL AST 14 L (17-59) U/L Lactate Dehydrogenase (313-618) U/L Total Creatine Kinase (55-170) U/L Total Protein 4.5 L (6.3-8.2) g/dL Albumin 2.3 L (3.5-5.0) g/dL Urine Protein 2+ H (Negative) Urine Blood Large H (Negative) Ur Leukocyte Esterase Large H (Negative) Urine RBC >182 H (0-5) /hpf Urine WBC >182 H (0-5) /hpf Urine WBC Clumps Many H (None) /hpf Urine Bacteria Few H (None) /hpf Crossmatch 11/25/17 Range/Units 04:37 WBC (3.8-10.6) k/uL RBC (4.30-5.90) m/uL Hgb (13.0-17.5) gm/dL Hct (39.0-53.0) % Neutrophils # (1.3-7.7) k/uL Sodium (137-145) mmol/L Potassium (3.5-5.1) mmol/L Chloride (98-107) mmol/L Carbon Dioxide (22-30) mmol/L BUN (9-20) mg/dL Creatinine (0.66-1.25) mg/dL Glucose (74-99) mg/dL AST (17-59) U/L Lactate Dehydrogenase 194 L (313-618) U/L Total Creatine Kinase (55-170) U/L Total Protein (6.3-8.2) g/dL Albumin (3.5-5.0) g/dL Urine Protein (Negative) Urine Blood (Negative) Ur Leukocyte Esterase (Negative) Urine RBC (0-5) /hpf Urine WBC (0-5) /hpf Urine WBC Clumps (None) /hpf Urine Bacteria (None) /hpf Crossmatch CT scan - abdomen: report reviewed CT scan - chest: report reviewed CT scan - pelvis: report reviewed (Dr. Field) Assessment and Plan (1) GI hemorrhage Narrative/Plan: Suspect acute GI bleed with Hemoccult stool positive no clear source presently without overt bleeding such as hematemesis hematochezia melena. Current Visit: Yes Status: Acute Code(s): K92.2 - GASTROINTESTINAL HEMORRHAGE, UNSPECIFIED SNOMED Code(s): 38834235 (2) Symptomatic anemia Current Visit: Yes Status: Acute Code(s): D64.9 - ANEMIA, UNSPECIFIED SNOMED Code(s): 436781913 (3) Acute blood loss anemia Current Visit: Yes Status: Acute Code(s): D62 - ACUTE POSTHEMORRHAGIC ANEMIA SNOMED Code(s): 405545773 (4) Thoracic aortic aneurysm Current Visit: Yes Status: Acute Code(s): I71.2 - THORACIC AORTIC ANEURYSM, WITHOUT RUPTURE SNOMED Code(s): 285168402 (5) Abdominal aneurysm Current Visit: Yes Status: Acute Code(s): I71.4 - ABDOMINAL AORTIC ANEURYSM , WITHOUT RUPTURE SNOMED Code(s): 101520501 (6) Cancer of neck Current Visit: Yes Status: Acute Code(s): C76.0 - MALIGNANT NEOPLASM OF HEAD , FACE AND NECK SNOMED Code(s): 110599531 (7) Multiple malignancies Current Visit: Yes Status: Chronic Code(s): C80.0 - DISSEMINATED MALIGNANT NEOPLASM, UNSPECIFIED SNOMED Code(s): 951290463 (8) Back pain Current Visit: Yes Status: Acute Code(s): M54.9 - DORSALGIA, UNSPECIFIED SNOMED Code(s): 577513183 (9) Kidney disease Current Visit: Yes Status: Chronic Code(s): N28.9 - DISORDER OF KIDNEY AND URETER, UNSPECIFIED SNOMED Code(s): 39549950 Plan: 1. Protonix 40 mg IV twice daily. Family and patient requesting conservative measures patient is not a candidate for inpatient endoscopic exams; CT imaging reporting multiple aneurysmal findings puts him at increased risk for endoscopic procedures at this time. Additionally he is declining endoscopic exams. Family considering comfort measures. Oncology consultation. Would advise supportive measures. 2. CBC monitoring. Diet as tolerated. 3. No CODE STATUS. Thank you for this kind referral and the opportunity to participate in the care of your patient. This consultation was discussed with Dr. Field. The impression and plan of care have been directed as dictated.
[2017-11-25] MEDS ORDERED: SODIUM BICARB 8.4% 50 ML SYR (1 MEQ/ML) IV ONE (10:26)
[2017-11-25] MEDS ORDERED: DEXTROSE 50%-WATER 50 ML SYRINGE IVP STA (10:27)
[2017-11-25] MEDS ORDERED: INSULIN REGULAR 100 UNIT/ML VIAL IV ONE (10:27)
[2017-11-25] MEDS: PIPERACILLIN-TAZOBACTAM 3.375 GM in DEXTROSE/WATER 1 50ML.BAG IVPB SCH ×2 (10:29→21:51)
--- NOTE | 2017-11-25 10:47 | P.NPCON ---
History of Present Illness - Reason for Consult acute renal failure, hyponatremia - History of Present Illness Reason for consultation: Acute kidney injury and electrolyte imbalance History of present illness: Patient is a 82-year-old male seen in renal consultation for acute kidney injury and electrolyte imbalance. Patient's creatinine was 2 on admission and is up to 2.1 today. He presented to the hospital with generalized weakness and poor oral intake. According to the they were pushing fluids to keep him hydrated. He does appear to have CK D3 Baseline creatinine in the range of 1.7- 1.8. 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 His hemoglobin is down to 6.3 today and he scheduled to receive 2 units of blood transfusion. His blood pressure was noted to be low in the systolic 70s and is now up to 103/ 51. He is not on any vasopressors. He is maintained on normal saline at 1 25 mL an hour. He did pass a swallow eval and his diet has been advanced. CAT scan of the abdomen revealed right renal atrophy with no evidence of hydronephrosis bilaterally. Sodium level was 124 and is 123 this morning. Patient is not a very reliable historian. Vital signs are stable. General: The patient appeared well nourished and normally developed. HEENT: Head exam is unremarkable. Neck is without jugular venous distension. LUNGS: Breath sounds decreased. HEART: Rate and Rhythm are regular. First and second heart sounds normal. No murmurs, rubs or gallops. ABDOMEN: Abdominal exam reveals normal bowel sounds. Non-tender and non- distended. No evidence of peritonitis. EXTREMITITES: No clubbing, cyanosis, or edema. Past Medical History Past Medical History: Cancer, Renal Disease Additional Past Medical History / Comment(s): Hypertension. Throat, neck, ears , renal, and bladder cancer. Legally blind. Chronic kidney disease. 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 Past Anesthesia/Blood Transfusion Reactions: Unable to Obtain Past Psychological History: No Psychological Hx Reported Smoking Status: Former smoker Past Alcohol Use History: None Reported Past Drug Use History: None Reported - Past Family History Father Family Medical History: CVA/TIA Mother Family Medical History: No Reported History Medications and Allergies Home Medications Medication Instructions Recorded Confirmed Type Metoprolol Tartrate [Lopressor] 50 mg PO BID 02/15/17 11/24/17 History Ergocalciferol [Vitamin D2] 50,000 unit PO Q7D 11/24/17 11/24/17 History Lisinopril [Prinivil] 5 mg PO HS 11/24/17 11/24/17 History Allergies Allergy/AdvReac Type Severity Reaction Status Date / Time No Known Allergies Allergy Verified 11/24/17 17:14 Physical Exam Vitals: Vital Signs Temp Pulse Pulse Resp BP BP BP 11/25/17 10:10 98.0 F 51 L 19 103/58 11/25/17 10:00 98.0 F 48 L 23 100/55 11/25/17 09:00 51 L 20 100/53 11/25/17 08:30 52 L 19 99/51 11/25/17 08:00 97.5 F L 45 L 21 84/55 11/25/17 05:51 44 L 14 81/43 11/25/17 05:43 43 L 14 81/40 11/25/17 05:21 96.7 F L 48 L 14 91/45 11/25/17 05:11 96.8 F L 57 L 14 97/48 11/25/17 04:54 95/45 11/25/17 04:45 49 L 92/40 11/25/17 04:25 50 L 14 84/33 11/25/17 04:00 96.8 F L 47 L 16 77/33 11/25/17 00:30 69 16 133/66 11/25/17 00:00 97.6 F 59 L 16 134/61 11/24/17 20:30 97 F L 53 L 16 124/60 11/24/17 19:50 54 L 16 112/53 11/24/17 19:08 56 L 18 94/60 11/24/17 18:40 57 L 18 115/54 11/24/17 17:35 54 L 20 133/60 11/24/17 16:51 53 L 20 136/55 11/24/17 16:22 98.9 F 55 L 24 79/53 Pulse Ox 11/25/17 10:10 98 11/25/17 10:00 100 11/25/17 09:00 99 11/25/17 08:30 98 11/25/17 08:00 91 L 11/25/17 05:51 11/25/17 05:43 96 11/25/17 05:21 99 11/25/17 05:11 97 11/25/17 04:54 11/25/17 04:45 11/25/17 04:25 96 11/25/17 04:00 95 11/25/17 00:30 94 L 11/25/17 00:00 96 11/24/17 20:30 99 11/24/17 19:50 100 11/24/17 19:08 100 11/24/17 18:40 98 11/24/17 17:35 100 11/24/17 16:51 100 11/24/17 16:22 100 Intake and Output 11/24/17 11/25/17 11/25/17 22:59 06:59 14:59 Intake Total 2625 310 Output Total 140 Balance 2485 310 Intake: IV 2625 ACETAMINOPHEN IV (For NPO 400 ) 1,000 mg In Empty Bag 1 bag @ 400 mls/hr IVPB ONCE STA Rx#:[id number] Calcium Chloride 1,000 mg 100 In Sodium Chloride 0.9% 100 ml @ 100 mls/hr IVPB ONCE STA Rx#:[id number] Sodium Chloride 0.9% 1, 1125 000 ml @ 125 mls/hr IV . Q8H FELICE Rx#:[id number] Sodium Chloride 0.9% 1, 1000 000 ml @ 999 mls/hr IV . Q1H1M ONE Rx#:[id number] Blood Product 0 310 Rc As-1 Unit 0 [id number] Rc As-3 Unit 0 310 [id number] Output: Urine 140 Other: Voiding Method Indwelling Catheter Weight 97.522 kg 98.5 kg 98.5 kg Results - Lab Results Most recent lab results Calcium 9.0 mg/dL (8.4-10.2) 11/25/17 04:37 Phosphorus 3.8 mg/dL (2.5-4.5) 11/25/17 04:37 Magnesium 2.0 mg/dL (1.6-2.3) 11/25/17 04:37 11/25/17 04:37 11/25/17 04:37 Assessment and Plan Plan: Assessment: 1. Nonoliguric acute kidney injury secondary to ischemic ATN secondary to hypotension and anemia. Creatinine was 21 admission and up to 2.1 today. No evidence of hydronephrosis. 2. Acute blood loss anemia secondary to GI bleed scheduled to receive 2 units of blood today. GI following. 3. Hyperkalemia secondary to acute kidney injury and metabolic acidosis. 4. Metabolic acidosis secondary to acute kidney injury. 5. Abdominal aortic aneurysm. 6. Neck cancer followed by oncology as outpatient. Patient was receiving radiation prior to admission. 7. Chronic kidney disease stage III with baseline creatinine in the range of 1.7-1.8. 8. Hyponatremia secondary to excess fluid intake in the setting of low solute intake. Plan: Encouraged oral intake, add protein supplements. Maintain normal saline at 125 mL an hour for now. 10 units of IV insulin with amp of D50 and 2 A of sodium bicarbonate IV push. Follow-up cortisol level. Check urine sodium and osmolality. Repeat electrolytes this evening. Continue to monitor renal function and urine output. Discussed with . Overall prognosis is poor. The understands this and is leaning toward comfort measures. Thank you for the consultation. I will continue to follow the patient with you during his hospital stay.
[2017-11-25] MEDS: traMADol 50 MG TAB PO PRN (11:24)
--- NOTE | 2017-11-25 11:26 | CDI ---
Last Revision, June 2017 Documentation Clarification Form Date: 11/25/2017 10:30:00 AM From: Barbara Mcmullen RN, CCDS Admit Date: 11/24/2017 7:37:00 PM Patient Name: Antoni Sandra Visit Number: [id number] ATTENTION: The Clinical Documentation Specialists (CDI) and [facility] Coding Staff appreciate your assistance in clarifying documentation. Please respond to the clarification below the line at the bottom and electronically sign. The CDI & [facility] Coding staff will review the response and follow-up if needed. Please note: Queries are made part of the Legal Health Record. If you have any questions, please contact the author of this message via ITS. Dr. Natalie Saucedo Patient history/risk factors: Throat/neck/bladder Cancer, HTN, CKD Clinical Indicators: 11/24 H&P: "bradycardic on arrival and hypotensive with a blood pressure 79/53. Acute anemia, undetermined etiology. Acute kidney injury on chronic kidney disease stage III -Suspect secondary to dehydration with poor oral intake on top of MARQUES inhibitor use and possible GI bleed " Vitals: Temp 98.9, HR 55, rr 24, b/p 79/53, spo2 100% ra Treatment: 0.9% NS bolus 2.5 L, followed by 125 cc/hr 2 U PRBC tx Levophed gtt titrate for B/P In your professional opinion, can you please provide further clarification and diagnosis based on treatment provided, if known? Hypovolemic Shock Cause Septic Shock Suspected or known causative organism Any associated organ failure Cardiogenic Shock Cause Other, please specify Unable to determine Please continue to document in your progress notes and discharge summary in order to capture severity of illness and risk of mortality. Include clinical findings that support your diagnosis. MTDD
[2017-11-25 11:35] LABS: Iron Saturation 12.5 (15.00-50.00)
--- NOTE | 2017-11-25 12:29 | CT ---
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 Histor y of pseudoaneurysm COMPARISON: 02/15/2017 CT DLP: 467.7 mGycm. Automated Exposure Control for Dose Reduction was Utilized. TECHNIQUE: CT scan of the neck is without intravenous contrast, axial images are obtained, coronal a nd sagittal reformatted images are reviewed. FINDINGS: Airway: Airways patent. Valleculae and piriform sinuses are unremarkable. True and false vocal cords are also unremarkable. Thyroid gland is symmetric. Carotid/Vascular Structures: Probable stable ductus bump is seen of the aortic arch. The size of a kn own right carotid bulb pseudoaneurysm versus true aneurysm with peripheral calcification in crescenti c nonatheromatous plaquing is unchanged although incompletely evaluated without contrast. Size measur es up to 2.1 cm on series 4 image 54. Again there is atherosclerosis of the supraclinoid and cavernou s portions of the internal carotid arteries. Osseous Structures: Osseous structures are intact with moderate to severe multilevel degenerative dis c disease. Paranasal sinuses and mastoid air cells are well aerated as are the inner ear cavities. 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 No residual soft tissue density is seen at the level of the external auditory canal which is on ser ies 4 image 74, however inferior to this at the level of the angle of the mandible there is extensive soft tissue density measuring at least 4.5 x 4.3 x 6.1 cm. Few foci of air are seen internally. Surr ounding inflammatory fat stranding is noted of the subcutaneous tissues. This mass appears to be cent ered within the parotid gland. There is overlying skin thickening. This abuts the sternocleidomastoid . Again there is engorged adjacent vasculature although no greater than 1 cm short axis lymph nodes a re appreciated. IMPRESSION: 1. Surgical excision of the prior neoplasm of the right auricle. However there is a new large soft ti ssue density involving the right parotid gland measuring up to 4.5 x 4.3 x 6.1 cm concerning for loca l regional recurrence or metastasis. Punctate foci of air are seen within this region. Correlate with recent surgical intervention or superimposed infection. No gross evidence of surrounding adenopathy. 2. 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
--- NOTE | 2017-11-25 12:58 | P.CNPUL ---
History of Present Illness Consult date: 11/25/17 Requesting physician: Natalie Saucedo Reason for consult: other (Acute hypotension, acute blood loss and anemia secondary to GI bleeding and acute on chronic kidney injury.) Chief complaint: Back pain History of present illness: This is an 82-year-old white male who was admitted on 11/24/2017, patient is known to have history of multiple cancers, including throat, neck, kidney, and bladder. History of chronic kidney disease, history of hypertension, and he is basically followed by oncology and by radiation oncology. Patient has been receiving radiation for severe low back pain. Patient was sent from radiation oncology down to the ER were in he was noted to be bradycardic, hypotensive, and blood pressure was 79/53. Patient received multiple fluid boluses until the blood pressure was optimized, and he was later transferred to the ICU. He was also noted to have low hemoglobin of 7.4, he was hyponatremic, sodium of 124 , potassium of 5.8, BUN of 97 creatinine of 2.0. Patient had a non-anion gap metabolic acidosis. He was also noted to have abnormal urinalysis showing pyuria, hematuria, and bacteriuria. Urine sodium was 67, urine osmolality was 438, and he was also noted to have positive stool occult blood. Today's hemoglobin was noted to be 6.3, patient was transferred to the ICU early this morning, and I was asked to see him on consultation. Again the main reason he was transferred to the ICU was because of his symptomatic anemia and hypotension. Empiric antibiotics were also given patient was on Zosyn for presumptive urinary tract infection and possible sepsis. In the meantime the patient is being worked up for possible aneurysm or pseudoaneurysm near the right common carotid artery, and there is a large soft tissue mass noted in the neck area just below the right ear. Patient has been a DO NOT RESUSCITATE CODE STATUS, and family is inclined to consider comfort care measures considering his multiple medical problems and comorbidities. At present, the patient denies any headaches no blurred vision no dizziness, no pain, no shortness of breath, no nausea no vomiting and no abdominal pain. Patient is very pleasant and legally blind. Other workup done during this admission included a CT of the chest and abdomen showing descending thoracic aortic aneurysm measuring up to 5.5, upper abdominal aortic aneurysm measuring 6.3 and a hypodensity in the anterior right lobe of the liver. Review of Systems 14 point review of systems were obtained, please refer to pertinent positives in HPI otherwise remaining systems are negative. Past Medical History Past Medical History: Cancer, Renal Disease Additional Past Medical History / Comment(s): Hypertension. Throat, neck, ears , renal, and bladder cancer. Legally blind. Chronic kidney disease. 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 Past Anesthesia/Blood Transfusion Reactions: Unable to Obtain Past Psychological History: No Psychological Hx Reported Smoking Status: Former smoker Past Alcohol Use History: None Reported Past Drug Use History: None Reported - Past Family History Father Family Medical History: CVA/TIA Mother Family Medical History: No Reported History Medications and Allergies Home Medications Medication Instructions Recorded Confirmed Type Metoprolol Tartrate [Lopressor] 50 mg PO BID 02/15/17 11/24/17 History Ergocalciferol [Vitamin D2] 50,000 unit PO Q7D 11/24/17 11/24/17 History Lisinopril [Prinivil] 5 mg PO HS 11/24/17 11/24/17 History Allergies Allergy/AdvReac Type Severity Reaction Status Date / Time No Known Allergies Allergy Verified 11/24/17 17:14 Physical Exam Vitals: Vital Signs Temp Pulse Pulse Resp BP BP BP 11/25/17 11:02 50 L 23 106/52 11/25/17 10:56 97.8 F 50 L 22 107/52 11/25/17 10:30 50 L 16 103/51 11/25/17 10:20 49 L 12 103/58 11/25/17 10:10 98.0 F 51 L 19 103/58 11/25/17 10:00 98.0 F 48 L 23 100/55 11/25/17 09:00 51 L 20 100/53 11/25/17 08:30 52 L 19 99/51 11/25/17 08:00 97.5 F L 45 L 21 84/55 11/25/17 05:51 44 L 14 81/43 11/25/17 05:43 43 L 14 81/40 11/25/17 05:21 96.7 F L 48 L 14 91/45 05/17/18 05:11 96.8 F L 57 L 14 97/48 11/25/17 04:54 95/45 11/25/17 04:45 49 L 92/40 11/25/17 04:25 50 L 14 84/33 11/25/17 04:00 96.8 F L 47 L 16 77/33 11/25/17 00:30 69 16 133/66 11/25/17 00:00 97.6 F 59 L 16 134/61 11/24/17 20:30 97 F L 53 L 16 124/60 11/24/17 19:50 54 L 16 112/53 11/24/17 19:08 56 L 18 94/60 11/24/17 18:40 57 L 18 115/54 11/24/17 17:35 54 L 20 133/60 11/24/17 16:51 53 L 20 136/55 11/24/17 16:22 98.9 F 55 L 24 79/53 Pulse Ox 11/25/17 11:02 96 11/25/17 10:56 95 11/25/17 10:30 100 11/25/17 10:20 96 11/25/17 10:10 98 11/25/17 10:00 100 11/25/17 09:00 99 11/25/17 08:30 98 11/25/17 08:00 91 L 11/25/17 05:51 11/25/17 05:43 96 11/25/17 05:21 99 11/25/17 05:11 97 11/25/17 04:54 11/25/17 04:45 11/25/17 04:25 96 11/25/17 04:00 95 11/25/17 00:30 94 L 11/25/17 00:00 96 11/24/17 20:30 99 11/24/17 19:50 100 11/24/17 19:08 100 11/24/17 18:40 98 11/24/17 17:35 100 11/24/17 16:51 100 11/24/17 16:22 100 Intake and Output 11/24/17 11/25/17 11/25/17 22:59 06:59 14:59 Intake Total 2625 860 Output Total 140 325 Balance 2485 535 Intake: IV 2625 550 ACETAMINOPHEN IV (For NPO 400 ) 1,000 mg In Empty Bag 1 bag @ 400 mls/hr IVPB ONCE STA Rx#:[id number] Calcium Chloride 1,000 mg 100 In Sodium Chloride 0.9% 100 ml @ 100 mls/hr IVPB ONCE STA Rx#:[id number] Piperacillin-Tazobactam 3 50 .375 gm In Dextrose/Water 1 50ml.bag @ 12.5 mls/hr IVPB Q12HR FELICE Rx#: [id number] Sodium Chloride 0.9% 1, 1125 500 000 ml @ 125 mls/hr IV . Q8H FELICE Rx#:[id number] Sodium Chloride 0.9% 1, 1000 000 ml @ 999 mls/hr IV . Q1H1M ONE Rx#:[id number] Blood Product 0 310 Rc As-1 Unit 0 [id number] Rc As-3 Unit 0 310 [id number] Output: Urine 140 325 Other: Voiding Method Indwelling Catheter Weight 97.522 kg 98.5 kg 98.5 kg General appearance: Revealed an 82-year-old white male, in no distress. Very pleasant. HET: PERRLA, EOMI. Moist mucous membranes. Head: Atraumatic, normocephalic. Neck: Right neck mass with dressing. Supple without lymphadenopathy. Trachea midline. Heart: S1 S2. Regular rate and rhythm. Lungs: No crackles or wheezes are heard. Abdomen: Soft, nontender, nondistended with bowel sounds. No peritoneal signs. No palpable organomegaly or masses. Extremities: Mayers clear edy urine. Neurological: No focal deficits. Strength and sensation are grossly intact. Psychiatric: Normal mood affect and mental status examination. Results - Laboratory Findings CBC and BMP: 11/25/17 04:37 11/25/17 04:37 PT/INR, D-dimer PT 10.4 sec (9.0-12.0) 11/25/17 04:37 INR 1.1 (<1.2) 11/25/17 04:37 Abnormal lab findings: Abnormal Labs 11/24/17 11/24/17 11/24/17 16:41 16:41 16:41 WBC 13.1 H RBC 2.86 L Hgb 8.3 L D Hct 24.4 L Neutrophils # 11.0 H Sodium 124 L Potassium 5.8 H Chloride 92 L Carbon Dioxide 19 L BUN 104 H* Creatinine 2.00 H Glucose 122 H Iron TIBC Iron Saturation AST Lactate Dehydrogenase Total Creatine Kinase 22 L Total Protein 5.7 L Albumin 3.2 L Urine Protein Urine Blood Ur Leukocyte Esterase Urine RBC Urine WBC Urine WBC Clumps Urine Bacteria Crossmatch 11/24/17 11/24/17 11/24/17 16:41 22:54 22:54 WBC RBC 2.57 L Hgb 7.4 L Hct 23.0 L Neutrophils # Sodium 124 L Potassium 5.8 H Chloride 95 L Carbon Dioxide 18 L BUN 97 H* Creatinine 2.00 H Glucose Iron TIBC Iron Saturation AST 16 L Lactate Dehydrogenase Total Creatine Kinase Total Protein 5.2 L Albumin 2.8 L Urine Protein Urine Blood Ur Leukocyte Esterase Urine RBC Urine WBC Urine WBC Clumps Urine Bacteria Crossmatch See Detail 11/25/17 11/25/17 11/25/17 00:24 04:37 04:37 WBC RBC 2.21 L Hgb 6.3 L* Hct 19.3 L* Neutrophils # Sodium Potassium Chloride Carbon Dioxide BUN Creatinine Glucose Iron 28 L TIBC 224 L Iron Saturation 12.50 L AST Lactate Dehydrogenase Total Creatine Kinase Total Protein Albumin Urine Protein 2+ H Urine Blood Large H Ur Leukocyte Esterase Large H Urine RBC >182 H Urine WBC >182 H Urine WBC Clumps Many H Urine Bacteria Few H Crossmatch 11/25/17 11/25/17 04:37 04:37 WBC RBC Hgb Hct Neutrophils # Sodium 123 L Potassium 5.6 H Chloride 97 L Carbon Dioxide 19 L BUN 91 H* Creatinine 2.10 H Glucose Iron TIBC Iron Saturation AST 14 L Lactate Dehydrogenase 194 L Total Creatine Kinase Total Protein 4.5 L Albumin 2.3 L Urine Protein Urine Blood Ur Leukocyte Esterase Urine RBC Urine WBC Urine WBC Clumps Urine Bacteria Crossmatch - Diagnostic Findings Chest x-ray: image reviewed (No evidence of acute pulmonary disease) Additional studies: CT of the neck showed large soft tissue mass involving the right parotid gland measuring 4.54.36.1, punctate foci of air noted possibly related to recent surgical intervention, superimposed infection is not entirely ruled out. Right carotid bulb pseudoaneurysm noted stable in comparison 05/02/2017. Assessment and Plan Assessment: Impression: 1 acute hypovolemic shock secondary to acute blood loss, anemia, most likely secondary to GI blood losses, exact source and nature is not clear at this point patient was seen by gastroenterology, and placed on Protonix. And recommended mostly conservative measures considering the overall patient's clinical condition and status. 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 4 thoracic and abdominal aortic aneurysms 5 multiple malignancies as noted in HPI. 6 acute symptomatic anemia secondary to GI hemorrhage. 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 8 non-anion gap metabolic acidosis secondary to renal disease 9 acute on chronic kidney injury. Secondary to hypotension, secondary to hypovolemic shock, strongly doubt sepsis. 10 acute hyperkalemia secondary to acute kidney injury and metabolic acidosis. 11 history of abdominal aortic aneurysm and thoracic aortic aneurysm. Recommendation: Continue present supportive care measures, continue fluids, pressors titrated to a mean arterial pressure of 65, we'll discuss with the family CODE STATUS and possibly comfort care measures. Long-term prognosis is definitely poor and guarded. We will continue to follow. Time with Patient: Greater than 30
--- NOTE | 2017-11-25 13:31 | ECHOF ---
Referral Reason:chf, aneurysm. MEASUREMENTS -------- HEIGHT: 182.9 cm WEIGHT: 98.4 kg BP: 81/40 IVSd: 1.9 cm (0.6 - 1.1) LVIDd: 5.2 cm (3.9 - 5.3) LVPWd: 1.3 cm (0.6 - 1.1) IVSs: 2.3 cm LVIDs: 2.0 cm LVPWs: 1.5 cm RVIDd: 3.8 cm (< 3.3) LAESV Index (A-L): 54.54 ml/m Ao Diam: 4.7 cm (2.0 - 3.7) LA Diam: 3.8 cm (2.7 - 3.8) AV Cusp: 1.8 cm (1.5 - 2.6) MV E Graeme: 0.75 m/s MV DecT: 254 ms MV A Graeme: 0.63 m/s MV E/A Ratio: 1.19 AR PHT: 787 ms RAP: 5.00 mmHg RVSP: 46.00 mmHg FINDINGS -------- Resting bradycardia (HR<60bpm). This was a technically adequate study. The left ventricular size is normal. Overall left ventricular systolic function is normal with, an EF between 55 - 60 %. Moderate asymmetric septal hypertrophy with septal thickness 1.6 - 1.9 cm. The right ventricle is mild to moderately enlarged. LA is severely dilated >40 ml/m2 RA appears enlarged. Aortic valve is trileaflet and is mildly thickened. There is [id number] aortic regurgitation. There is no evidence of aortic stenosis. The mitral valve leaflets are mildly thickened. Moderate mitral regurgitation is present. Moderate tricuspid regurgitation present. There is mild pulmonary hypertension. The right ventric ular systolic pressure, as measured by Doppler, is 46.00mmHg. Trace/mild (physiologic) pulmonic regurgitation. The aortic root is mildy dilated up to 4.2 cm. The main pulmonary artery is severely dilated up to 5.1 cm. IVC Not well visulized. There is no pericardial effusion. CONCLUSIONS -------- 1. Resting bradycardia (HR<60bpm). 2. This was a technically adequate study. 3. The left ventricular size is normal. 4. Overall left ventricular systolic function is normal with, an EF between 55 - 60 %. 5. Moderate asymmetric septal hypertrophy with septal thickness 1.6 - 1.9 cm. 6. The right ventricle is mild to moderately enlarged. 7. LA is severely dilated >40 ml/m2 8. RA appears enlarged. 9. Aortic valve is trileaflet and is mildly thickened. 10. There is syzc-fi-qdytcvcx aortic regurgitation. 11. The mitral valve leaflets are mildly thickened. 12. Moderate mitral regurgitation is present. 13. Moderate tricuspid regurgitation present. 14. There is mild pulmonary hypertension. 15. The right ventricular systolic pressure, as measured by Doppler, is 46.00mmHg. 16. Trace/mild (physiologic) pulmonic regurgitation. 17. The aortic root is mildy dilated up to 4.2 cm. 18. The main pulmonary artery is severely dilated up to 5.1 cm. 19. IVC Not well visulized. 20. There is no pericardial effusion. LIMNOLOGY TEACHER: Fernando Ariza RDCS
[2017-11-25 15:30] LABS: HCT 24.8 % (39.0-53.0); MCH 29.8 pg (25.0-35.0); MCHC 33.4 g/dL (31.0-37.0); MCV 89.1 fL (80.0-100.0); Platelet Count 245 k/uL (150-450); RBC 2.79 m/uL (4.30-5.90); RDW 14.5 % (11.5-15.5); WBC 7.6 k/uL (3.8-10.6)
[2017-11-25 15:34] LABS: HGB 8.3 gm/dL (13.0-17.5)
[2017-11-25 15:43] LABS: Albumin 2.4 g/dL (3.5-5.0); Calcium 9.2 mg/dL (8.4-10.2); Potassium 5.1 mmol/L (3.5-5.1); Total Bilirubin 0.8 mg/dL (0.2-1.3); Total Protein 4.6 g/dL (6.3-8.2)
--- NOTE | 2017-11-25 16:15 | P.CONS ---
History of Present Illness - Reason for Consult Consult date: 11/25/17 Oncologic Care Requesting physician: Artem Lau - Chief Complaint Anemia and Pain - History of Present Illness Mr Sandra is a pleasant white male, with multiple medical problems, and a very complicated past oncologic history. The patient was diagnosed with superficial bladder cancer and the [facility] in [place] in 2007 but did not follow-up subsequently. He developed sandy hematuria in 11/18 and underwent evacuation of a clot and TUR via cystoscopy at the [facility]. During that procedure, he developed perforation of the bladder and required multiple blood transfusions. in 2011 he had a cystoscopy locally with Dr. Jorge which was negative. he was then admitted to [facility] in 11/22 with progressive weakness and dehydration. CT scan of the abdomen and pelvis showed a large mass in the bladder along with adenopathy and an adrenal mass, suggestive of metastatic bladder cancer. he was seen in consult at that time. Given his multiple medical issues and overall limited performance status, we discussed pursuing further diagnostic workup, versus a palliative approach. The patient overall agreed that he was not a good candidate for aggressive chemotherapy wouldn't want to pursue definitive diagnostic workup with urology as an outpatient. It is not clear if he did follow-up. apparently he did not develop any progressive abdominal or urinary symptoms. 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 He states that within about 2 months he had developed a mass anterior to the right ear lesion. This was quite sent initially but started growing rapidly with associated pressure and discomfort, since mid to late 07/29. He was seen again by ENT and had a FNA on . This was positive for metastatic squamous cell cancer. He had a CT scan of the soft tissue of the neck on 09/07/17, which showed a large parotid mass measuring 4.13.94.3 cm with some central necrosis and local inflammatory effect. He was referred to the [facility] in [place], and was seen by ENT surgery there. He had CT scan of the chest done which showed a large thoracic aortic aneurysm measuring 5.2 cm. The patient has also been legally blind since the early 1999. He also has chronic kidney disease. He was therefore not felt to be a good candidate for radical surgery and was instead referred back here for chemoradiation. He was seen in the office for initial consult on 10/18/17. he had restaging studies with PET scan, as well as additional labs drawn. The PET scan showed uptake in the parotid mass, a tiny area of uptake in the left lung apex, with no corresponding lesion, as well as strong uptake in the left adrenal mass. Labs indicated creatinine of 2.04 with calculated GFR around 31 mL per hour Patient seen in ICU today. He complains of pain in back of neck and head. Review of Systems A 14 point review of systems assessed and completed and all negative except HPI Past Medical History Past Medical History: Cancer, Renal Disease Additional Past Medical History / Comment(s): Hypertension. Throat, neck, ears , renal, and bladder cancer. Legally blind. Chronic kidney disease. 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 Past Anesthesia/Blood Transfusion Reactions: Unable to Obtain Past Psychological History: No Psychological Hx Reported Smoking Status: Former smoker Past Alcohol Use History: None Reported Past Drug Use History: None Reported - Past Family History Father Family Medical History: CVA/TIA Mother Family Medical History: No Reported History Medications and Allergies Home Medications Medication Instructions Recorded Confirmed Type Metoprolol Tartrate [Lopressor] 50 mg PO BID 02/15/17 11/24/17 History Ergocalciferol [Vitamin D2] 50,000 unit PO Q7D 11/24/17 11/24/17 History Lisinopril [Prinivil] 5 mg PO HS 11/24/17 11/24/17 History Allergies Allergy/AdvReac Type Severity Reaction Status Date / Time No Known Allergies Allergy Verified 11/24/17 17:14 Physical Exam Vitals: Vital Signs Temp Pulse Pulse Resp BP BP Pulse Ox 11/25/17 09:00 51 L 20 100/53 99 11/25/17 08:30 52 L 19 99/51 98 11/25/17 08:00 97.5 F L 45 L 21 84/55 91 L 11/25/17 05:51 44 L 14 81/43 11/25/17 05:43 43 L 14 81/40 96 11/25/17 05:21 96.7 F L 48 L 14 91/45 99 11/25/17 05:11 96.8 F L 57 L 14 97/48 97 11/25/17 04:54 95/45 11/25/17 04:45 49 L 92/40 11/25/17 04:25 50 L 14 84/33 96 11/25/17 04:00 96.8 F L 47 L 16 77/33 95 11/25/17 00:30 69 16 133/66 94 L 11/25/17 00:00 97.6 F 59 L 16 134/61 96 11/24/17 20:30 97 F L 53 L 16 124/60 99 11/24/17 19:50 54 L 16 112/53 100 11/24/17 19:08 56 L 18 94/60 100 11/24/17 18:40 57 L 18 115/54 98 11/24/17 17:35 54 L 20 133/60 100 11/24/17 16:51 53 L 20 136/55 100 11/24/17 16:22 98.9 F 55 L 24 79/53 100 Intake and Output 11/24/17 11/25/17 11/25/17 22:59 06:59 14:59 Intake Total 2625 310 Output Total 140 Balance 2485 310 Intake: IV 2625 ACETAMINOPHEN IV (For NPO 400 ) 1,000 mg In Empty Bag 1 bag @ 400 mls/hr IVPB ONCE STA Rx#:[id number] Calcium Chloride 1,000 mg 100 In Sodium Chloride 0.9% 100 ml @ 100 mls/hr IVPB ONCE STA Rx#:[id number] Sodium Chloride 0.9% 1, 1125 000 ml @ 125 mls/hr IV . Q8H FELICE Rx#:[id number] Sodium Chloride 0.9% 1, 1000 000 ml @ 999 mls/hr IV . Q1H1M ONE Rx#:[id number] Blood Product 0 310 Rc As-1 Unit 0 [id number] Rc As-3 Unit 0 310 [id number] Output: Urine 140 Other: Voiding Method Indwelling Catheter Weight 97.522 kg 98.5 kg 98.5 kg - Constitutional General appearance: cooperative, no acute distress - EENT Eyes: edentulous, EOMI ENT: hard of hearing - Neck Neck: lymphadenopathy, normal ROM - Respiratory Respiratory: bilateral: diminished (Bibasiliar) - Cardiovascular Heart rate: 48 Rhythm: irregularly irregular leg Peripheral Edema: bilateral: 1+ - Gastrointestinal General gastrointestinal: normal bowel sounds, soft, tenderness - Integumentary Integumentary: pale - Musculoskeletal Musculoskeletal: generalized weakness - Psychiatric Lethargic, arousable and appropriate Psychiatric: A&O x's 3 Results CBC & Chem 7: 11/25/17 15:13 11/25/17 15:13 Labs: Abnormal Lab Results - Last 24 Hours (Table) 11/24/17 11/24/17 11/24/17 Range/Units 16:41 16:41 16:41 WBC 13.1 H (3.8-10.6) k/uL RBC 2.86 L (4.30-5.90) m/uL Hgb 8.3 L D (13.0-17.5) gm/dL Hct 24.4 L (39.0-53.0) % Neutrophils # 11.0 H (1.3-7.7) k/uL Sodium 124 L (137-145) mmol/L Potassium 5.8 H (3.5-5.1) mmol/L Chloride 92 L (98-107) mmol/L Carbon Dioxide 19 L (22-30) mmol/L BUN 104 H* (9-20) mg/dL Creatinine 2.00 H (0.66-1.25) mg/dL Glucose 122 H (74-99) mg/dL AST (17-59) U/L Lactate Dehydrogenase (313-618) U/L Total Creatine Kinase 22 L (55-170) U/L Total Protein 5.7 L (6.3-8.2) g/dL Albumin 3.2 L (3.5-5.0) g/dL Urine Protein (Negative) Urine Blood (Negative) Ur Leukocyte Esterase (Negative) Urine RBC (0-5) /hpf Urine WBC (0-5) /hpf Urine WBC Clumps (None) /hpf Urine Bacteria (None) /hpf Crossmatch 11/24/17 11/24/17 11/24/17 Range/Units 16:41 22:54 22:54 WBC (3.8-10.6) k/uL RBC 2.57 L (4.30-5.90) m/uL Hgb 7.4 L (13.0-17.5) gm/dL Hct 23.0 L (39.0-53.0) % Neutrophils # (1.3-7.7) k/uL Sodium 124 L (137-145) mmol/L Potassium 5.8 H (3.5-5.1) mmol/L Chloride 95 L (98-107) mmol/L Carbon Dioxide 18 L (22-30) mmol/L BUN 97 H* (9-20) mg/dL Creatinine 2.00 H (0.66-1.25) mg/dL Glucose (74-99) mg/dL AST 16 L (17-59) U/L Lactate Dehydrogenase (313-618) U/L Total Creatine Kinase (55-170) U/L Total Protein 5.2 L (6.3-8.2) g/dL Albumin 2.8 L (3.5-5.0) g/dL Urine Protein (Negative) Urine Blood (Negative) Ur Leukocyte Esterase (Negative) Urine RBC (0-5) /hpf Urine WBC (0-5) /hpf Urine WBC Clumps (None) /hpf Urine Bacteria (None) /hpf Crossmatch See Detail 11/25/17 11/25/17 11/25/17 Range/Units 00:24 04:37 04:37 WBC (3.8-10.6) k/uL RBC 2.21 L (4.30-5.90) m/uL Hgb 6.3 L* (13.0-17.5) gm/dL Hct 19.3 L* (39.0-53.0) % Neutrophils # (1.3-7.7) k/uL Sodium 123 L (137-145) mmol/L Potassium 5.6 H (3.5-5.1) mmol/L Chloride 97 L (98-107) mmol/L Carbon Dioxide 19 L (22-30) mmol/L BUN 91 H* (9-20) mg/dL Creatinine 2.10 H (0.66-1.25) mg/dL Glucose (74-99) mg/dL AST 14 L (17-59) U/L Lactate Dehydrogenase (313-618) U/L Total Creatine Kinase (55-170) U/L Total Protein 4.5 L (6.3-8.2) g/dL Albumin 2.3 L (3.5-5.0) g/dL Urine Protein 2+ H (Negative) Urine Blood Large H (Negative) Ur Leukocyte Esterase Large H (Negative) Urine RBC >182 H (0-5) /hpf Urine WBC >182 H (0-5) /hpf Urine WBC Clumps Many H (None) /hpf Urine Bacteria Few H (None) /hpf Crossmatch 11/25/17 Range/Units 04:37 WBC (3.8-10.6) k/uL RBC (4.30-5.90) m/uL Hgb (13.0-17.5) gm/dL Hct (39.0-53.0) % Neutrophils # (1.3-7.7) k/uL Sodium (137-145) mmol/L Potassium (3.5-5.1) mmol/L Chloride (98-107) mmol/L Carbon Dioxide (22-30) mmol/L BUN (9-20) mg/dL Creatinine (0.66-1.25) mg/dL Glucose (74-99) mg/dL AST (17-59) U/L Lactate Dehydrogenase 194 L (313-618) U/L Total Creatine Kinase (55-170) U/L Total Protein (6.3-8.2) g/dL Albumin (3.5-5.0) g/dL Urine Protein (Negative) Urine Blood (Negative) Ur Leukocyte Esterase (Negative) Urine RBC (0-5) /hpf Urine WBC (0-5) /hpf Urine WBC Clumps (None) /hpf Urine Bacteria (None) /hpf Crossmatch Assessment and Plan (1) Anemia Current Visit: Yes Status: Acute Code(s): D64.9 - ANEMIA, UNSPECIFIED SNOMED Code(s): 109252764 (2) Cancer of neck Current Visit: Yes Status: Acute Code(s): C76.0 - MALIGNANT NEOPLASM OF HEAD , FACE AND NECK SNOMED Code(s): 126326986 Plan: Assessment and Recommendations: 1. Anemia secondary to Acute Blood Loss, likely component of renal disease - Transfusion for hgb less than 7 - 2. Acute Kidney Injury (Ischemic ATN secondary to Hypotension/Anemia), metabolic acidosis, hyperkalemia and hyponatremia - Nephrology following 3. Acute Hypovolemic Shock secondary to probable GI blood loss, although exact source not clear. - GI Following 4. Head and Neck Cancer - Large Right Neck Mass Status Post Radiation therapy - Conservative and comfort measures reasonable Physician Attestation: I have completed the full history and physical of this patient and discussed and agree with above note by REID Saha, Dictated as a scribe.
[2017-11-25 22:47] LABS: HGB 7.9 gm/dL (13.0-17.5); MCH 29.4 pg (25.0-35.0); Platelet Count 249 k/uL (150-450); RDW 14.6 % (11.5-15.5); WBC 6.9 k/uL (3.8-10.6)
[2017-11-26] MEDS: MORPHINE SULFATE 4 MG/ML SYRINGE IVP PRN ×2 (02:54→06:13)
[2017-11-26] MEDS: SODIUM CHLORIDE 0.9% 1,000 ML IV SCH ×4 (03:54→16:32)
[2017-11-26 07:42] LABS: Basophils % (A) 0 %; Eosinophils # (A) 0.2 k/uL (0-0.7); Eosinophils % (A) 3 %; HCT 23.3 % (39.0-53.0); HGB 7.7 gm/dL (13.0-17.5); Lymphocytes # (A) 0.6 k/uL (1.0-4.8); Lymphocytes % (A) 9 %; MCH 29.5 pg (25.0-35.0); MCHC 32.9 g/dL (31.0-37.0); MCV 89.7 fL (80.0-100.0); Monocytes # (A) 0.3 k/uL (0-1.0); Monocytes % (A) 5 %; Neutrophils # (A) 5.2 k/uL (1.3-7.7); Neutrophils % (A) 82 %; Platelet Count 272 k/uL (150-450); RDW 14.7 % (11.5-15.5); WBC 6.3 k/uL (3.8-10.6)
[2017-11-26 08:00] LABS: Calcium 8.7 mg/dL (8.4-10.2); Magnesium 1.8 mg/dL (1.6-2.3); Phosphorus 3.8 mg/dL (2.5-4.5); Potassium 5.2 mmol/L (3.5-5.1)
[2017-11-26 08:27] VITALS: RESP 20
[2017-11-26] MEDS: PIPERACILLIN-TAZOBACTAM 3.375 GM in DEXTROSE/WATER 1 50ML.BAG IVPB SCH (08:29)
[2017-11-26] MEDS: PANTOPRAZOLE 40 MG/10 ML VIAL IV SCH (08:32)
--- NOTE | 2017-11-26 08:57 | P.PN ---
Subjective Progress Note Date: 11/26/17 Principal diagnosis: GI bleed and anemia Nursing reports no overt bleeding through the night such as hematemesis hematochezia melena. Right neck mass head moderate bleeding last night. Presently feels well. Tolerating diet. Denies abdominal pain. Hemoglobin 7.7 stable. Objective - Vital Signs Vital signs: Vital Signs Temp 97.7 F 11/26/17 07:00 Pulse 103 H 11/26/17 07:00 Resp 20 11/26/17 07:00 BP 119/57 11/26/17 07:00 Pulse Ox 95 11/26/17 07:00 Intake & Output 11/25/17 11/26/17 11/26/17 18:59 06:59 18:59 Intake Total 1670 830 Output Total 560 700 Balance 1110 130 Weight 98.5 kg Intake: IV 1050 50 Piperacillin-Tazobactam 3 50 50 .375 gm In Dextrose/Water 1 50ml.bag @ 12.5 mls/hr IVPB Q12HR FELICE Rx#: [id number] Sodium Chloride 0.9% 1, 1000 000 ml @ 125 mls/hr IV . Q8H FELICE Rx#:[id number] Oral 780 Blood Product 620 Rc As-1 Unit 310 [id number] Rc As-3 Unit 310 [id number] Output: Urine 560 700 Other: Voiding Method Indwelling Catheter Indwelling Catheter # Voids 3 - Exam General appearance: The patient is alert, oriented, in no acute distress. Legally blind. HET: Head is normocephalic and atraumatic. Pupils are equal and reactive. Oropharynx is clear without lesions. Right neck mass with dressing. Neck: Supple without lymphadenopathy. Trachea midline. Heart: S1 S2. Regular rate and rhythm. Lungs: No crackles or wheezes are heard. Abdomen: Soft, nontender, nondistended with bowel sounds. No peritoneal signs. No palpable organomegaly or masses. Extremities: Normal skin color and turgor. No cyanosis, rash, ulceration, clubbing, or edema. Radial and pedal pulses are 2/4 bilaterally. Neurological: No focal deficits. Strength and sensation are grossly intact. - Labs CBC & Chem 7: 11/26/17 07:10 11/26/17 07:10 Labs: Abnormal Lab Results - Last 24 Hours (Table) 11/24/17 11/25/17 11/25/17 Range/Units 16:41 04:37 15:13 RBC 2.79 L (4.30-5.90) m/uL Hgb 8.3 L D (13.0-17.5) gm/dL Hct 24.8 L (39.0-53.0) % Lymphocytes # (1.0-4.8) k/uL Sodium (137-145) mmol/L Potassium (3.5-5.1) mmol/L Carbon Dioxide (22-30) mmol/L BUN (9-20) mg/dL Creatinine (0.66-1.25) mg/dL Glucose (74-99) mg/dL Iron 28 L (65-175) ug/dL TIBC 224 L (228-460) ug/dL Iron Saturation 12.50 L (15.00-50.00) Total Protein (6.3-8.2) g/dL Albumin (3.5-5.0) g/dL Crossmatch See Detail 11/25/17 11/25/17 11/26/17 Range/Units 15:13 22:28 07:10 RBC 2.70 L 2.60 L (4.30-5.90) m/uL Hgb 7.9 L 7.7 L (13.0-17.5) gm/dL Hct 24.0 L 23.3 L (39.0-53.0) % Lymphocytes # 0.6 L (1.0-4.8) k/uL Sodium 126 L (137-145) mmol/L Potassium (3.5-5.1) mmol/L Carbon Dioxide 19 L (22-30) mmol/L BUN 84 H* (9-20) mg/dL Creatinine 2.00 H (0.66-1.25) mg/dL Glucose 104 H (74-99) mg/dL Iron (65-175) ug/dL TIBC (228-460) ug/dL Iron Saturation (15.00-50.00) Total Protein 4.6 L (6.3-8.2) g/dL Albumin 2.4 L (3.5-5.0) g/dL Crossmatch 11/26/17 Range/Units 07:10 RBC (4.30-5.90) m/uL Hgb (13.0-17.5) gm/dL Hct (39.0-53.0) % Lymphocytes # (1.0-4.8) k/uL Sodium 129 L (137-145) mmol/L Potassium 5.2 H (3.5-5.1) mmol/L Carbon Dioxide 20 L (22-30) mmol/L BUN 73 H (9-20) mg/dL Creatinine 2.13 H (0.66-1.25) mg/dL Glucose 107 H (74-99) mg/dL Iron (65-175) ug/dL TIBC (228-460) ug/dL Iron Saturation (15.00-50.00) Total Protein (6.3-8.2) g/dL Albumin (3.5-5.0) g/dL Crossmatch Microbiology - Last 24 Hours (Table) 11/25/17 04:55 Urine Culture - Preliminary Urine,Catheterized Assessment and Plan (1) GI hemorrhage Narrative/Plan: Suspect acute GI bleed with Hemoccult stool positive no clear source presently without overt bleeding such as hematemesis hematochezia melena. Current Visit: Yes Status: Acute Code(s): K92.2 - GASTROINTESTINAL HEMORRHAGE, UNSPECIFIED SNOMED Code(s): 67513044 (2) Symptomatic anemia Current Visit: Yes Status: Acute Code(s): D64.9 - ANEMIA, UNSPECIFIED SNOMED Code(s): 378079572 (3) Acute blood loss anemia Current Visit: Yes Status: Acute Code(s): D62 - ACUTE POSTHEMORRHAGIC ANEMIA SNOMED Code(s): 030215602 (4) Thoracic aortic aneurysm Current Visit: Yes Status: Acute Code(s): I71.2 - THORACIC AORTIC ANEURYSM, WITHOUT RUPTURE SNOMED Code(s): 641442070 (5) Abdominal aneurysm Current Visit: Yes Status: Acute Code(s): I71.4 - ABDOMINAL AORTIC ANEURYSM , WITHOUT RUPTURE SNOMED Code(s): 979375339 (6) Cancer of neck Current Visit: Yes Status: Acute Code(s): C76.0 - MALIGNANT NEOPLASM OF HEAD , FACE AND NECK SNOMED Code(s): 125624015 (7) Multiple malignancies Current Visit: Yes Status: Chronic Code(s): C80.0 - DISSEMINATED MALIGNANT NEOPLASM, UNSPECIFIED SNOMED Code(s): 565226573 (8) Back pain Current Visit: Yes Status: Acute Code(s): M54.9 - DORSALGIA, UNSPECIFIED SNOMED Code(s): 145123686 (9) Kidney disease Current Visit: Yes Status: Chronic Code(s): N28.9 - DISORDER OF KIDNEY AND URETER, UNSPECIFIED SNOMED Code(s): 77881874 Plan: 1. Protonix 40 mg IV twice daily. Family and patient requesting conservative measures patient is not a candidate for inpatient endoscopic exams; CT imaging reporting multiple aneurysmal findings puts him at increased risk for endoscopic procedures at this time. Additionally he is declining endoscopic exams. 2. CBC monitoring. Diet as tolerated. 3. No CODE STATUS. 4. Will follow as needed. Assessment and plan a care discussed with Dr. Field
--- NOTE | 2017-11-26 14:24 | P.PN ---
Subjective Patient is seen in follow-up for acute kidney injury and electrolyte imbalance. Creatinine is little bit worse today at 2.13. Sodium level is improved to 129. Patient's currently resting in bed. He is maintained on normal saline at 125 mL an hour. His hemoglobin was low as 6.3 yesterday for which she did receive 2 units of blood. Hemoglobin up to 7.7 today. He is not a candidate for endoscopy due to multiple comorbidities. He is noted to have right neck mass for which she's been following with oncology and undergoing radiation as outpatient. Patient presented with generalized weakness and poor oral intake. The patient and are refusing any aggressive measures. The wishes to take the patient home and care for him at home. Vital signs are stable. General: The patient appeared well nourished and normally developed. HEENT: Head exam is unremarkable. Neck is without jugular venous distension. LUNGS: Lungs are clear to auscultation and percussion. Breath sounds decreased. HEART: Rate and Rhythm are regular. First and second heart sounds normal. No murmurs, rubs or gallops. ABDOMEN: Abdominal exam reveals normal bowel sounds. Non-tender and non- distended. No evidence of peritonitis. EXTREMITITES: No clubbing, cyanosis, or edema. Objective - Vital Signs Vital signs: Vital Signs Temp 97.7 F 11/26/17 07:00 Pulse 103 H 11/26/17 07:15 Resp 20 11/26/17 07:15 BP 119/57 11/26/17 07:00 Pulse Ox 95 11/26/17 07:00 Intake & Output 11/25/17 11/26/17 11/26/17 18:59 06:59 18:59 Intake Total 1670 830 240 Output Total 560 700 Balance 1110 130 240 Weight 98.5 kg Intake: IV 1050 50 Piperacillin-Tazobactam 3 50 50 .375 gm In Dextrose/Water 1 50ml.bag @ 12.5 mls/hr IVPB Q12HR FELICE Rx#: [id number] Sodium Chloride 0.9% 1, 1000 000 ml @ 125 mls/hr IV . Q8H FELICE Rx#:[id number] Oral 780 240 Blood Product 620 Rc As-1 Unit 310 [id number] Rc As-3 Unit 310 [id number] Output: Urine 560 700 Other: Voiding Method Indwelling Catheter Indwelling Catheter Indwelling Catheter # Voids 3 - Labs CBC & Chem 7: 11/26/17 07:10 11/26/17 07:10 Labs: Abnormal Lab Results - Last 24 Hours (Table) 11/25/17 11/25/17 11/25/17 Range/Units 15:13 15:13 22:28 RBC 2.79 L 2.70 L (4.30-5.90) m/uL Hgb 8.3 L D 7.9 L (13.0-17.5) gm/dL Hct 24.8 L 24.0 L (39.0-53.0) % Lymphocytes # (1.0-4.8) k/uL Sodium 126 L (137-145) mmol/L Potassium (3.5-5.1) mmol/L Carbon Dioxide 19 L (22-30) mmol/L BUN 84 H* (9-20) mg/dL Creatinine 2.00 H (0.66-1.25) mg/dL Glucose 104 H (74-99) mg/dL Total Protein 4.6 L (6.3-8.2) g/dL Albumin 2.4 L (3.5-5.0) g/dL 11/26/17 11/26/17 Range/Units 07:10 07:10 RBC 2.60 L (4.30-5.90) m/uL Hgb 7.7 L (13.0-17.5) gm/dL Hct 23.3 L (39.0-53.0) % Lymphocytes # 0.6 L (1.0-4.8) k/uL Sodium 129 L (137-145) mmol/L Potassium 5.2 H (3.5-5.1) mmol/L Carbon Dioxide 20 L (22-30) mmol/L BUN 73 H (9-20) mg/dL Creatinine 2.13 H (0.66-1.25) mg/dL Glucose 107 H (74-99) mg/dL Total Protein (6.3-8.2) g/dL Albumin (3.5-5.0) g/dL Microbiology - Last 24 Hours (Table) 11/25/17 04:55 Urine Culture - Preliminary Urine,Catheterized Assessment and Plan Plan: Assessment: 1. Nonoliguric acute kidney injury secondary to ischemic ATN secondary to hypotension and anemia. Creatinine was 2.1 admission and is 2.13 today. No evidence of hydronephrosis. 2. Acute blood loss anemia secondary to GI bleed s/p 2 units of blood 11/25/17. GI following - not a candidate for endoscopy. 3. Hyperkalemia secondary to acute kidney injury and metabolic acidosis. Improved. 4. Metabolic acidosis secondary to acute kidney injury. Improved. 5. Abdominal aortic aneurysm. 6. Neck cancer followed by oncology as outpatient. Patient was receiving radiation prior to admission. 7. Chronic kidney disease stage III with baseline creatinine in the range of 1.7-1.8. 8. Hyponatremia secondary to excess fluid intake in the setting of low solute intake. Improving. 9. UTI with urine culture positive for gram-negative bacilli. Maintained on IV Zosyn. Plan: Encouraged oral intake, added protein supplements. I will decrease the rate of normal saline to 75 mL an hour. Add oral sodium bicarbonate 650 mg twice daily. Continue to monitor renal function and urine output. Discussed with . Overall prognosis is poor. The understands and wishes for no aggressive measures.
--- NOTE | 2017-11-26 14:28 | P.PN ---
Subjective Progress Note Date: 11/26/17 Principal diagnosis: Acute hypovolemic shock secondary to acute blood loss, recovered This is an 82-year-old white male who was admitted on 11/24/2017, patient is known to have history of multiple cancers, including throat, neck, kidney, and bladder. History of chronic kidney disease, history of hypertension, and he is basically followed by oncology and by radiation oncology. Patient has been receiving radiation for severe low back pain. Patient was sent from radiation oncology down to the ER were in he was noted to be bradycardic, hypotensive, and blood pressure was 79/53. Patient received multiple fluid boluses until the blood pressure was optimized, and he was later transferred to the ICU. He was also noted to have low hemoglobin of 7.4, he was hyponatremic, sodium of 124 , potassium of 5.8, BUN of 97 creatinine of 2.0. Patient had a non-anion gap metabolic acidosis. He was also noted to have abnormal urinalysis showing pyuria, hematuria, and bacteriuria. Urine sodium was 67, urine osmolality was 438, and he was also noted to have positive stool occult blood. Today's hemoglobin was noted to be 6.3, patient was transferred to the ICU early this morning, and I was asked to see him on consultation. Again the main reason he was transferred to the ICU was because of his symptomatic anemia and hypotension. Empiric antibiotics were also given patient was on Zosyn for presumptive urinary tract infection and possible sepsis. In the meantime the patient is being worked up for possible aneurysm or pseudoaneurysm near the right common carotid artery, and there is a large soft tissue mass noted in the neck area just below the right ear. Patient has been a DO NOT RESUSCITATE CODE STATUS, and family is inclined to consider comfort care measures considering his multiple medical problems and comorbidities. At present, the patient denies any headaches no blurred vision no dizziness, no pain, no shortness of breath, no nausea no vomiting and no abdominal pain. Patient is very pleasant and legally blind. Other workup done during this admission included a CT of the chest and abdomen showing descending thoracic aortic aneurysm measuring up to 5.5, upper abdominal aortic aneurysm measuring 6.3 and a hypodensity in the anterior right lobe of the liver. On 11/26/2017 patient seen in follow-up on oncology floor. He is resting in bed , denies any distress at the moment, denies any chest pain or dyspnea. Patient was transfused with 2 units of packed red blood cells yesterday, and today his hemoglobin is 7.7, patient hemodynamically stable, has not had any overt bleeding, no melena, no hematemesis. Right neck mass is losing serosanguineous drainage, and there is a ABD pad dressing present on the patient's right neck. CT of the soft tissue of the neck showed on new large soft tissue density involving the right parotid gland surgery for local regional recurrence or metastasis. Sodium is up to 129, potassium is 5.2, BUN is 73, and creatinine is 2.13, nephrology is following. From pulmonary/critical care standpoint patient is currently stable although his prognosis is poor, hemodynamically patient has improved, no longer hypotensive, no acute overt bleeding noted. No active pulmonary issues. We will see the patient on as-needed basis Objective - Vital Signs Vital signs: Vital Signs Temp 97.7 F 11/26/17 07:00 Pulse 103 H 11/26/17 07:15 Resp 20 11/26/17 07:15 BP 119/57 11/26/17 07:00 Pulse Ox 95 11/26/17 07:00 Intake & Output 11/25/17 11/26/17 11/26/17 18:59 06:59 18:59 Intake Total 1670 830 240 Output Total 560 700 Balance 1110 130 240 Weight 98.5 kg Intake: IV 1050 50 Piperacillin-Tazobactam 3 50 50 .375 gm In Dextrose/Water 1 50ml.bag @ 12.5 mls/hr IVPB Q12HR FELICE Rx#: [id number] Sodium Chloride 0.9% 1, 1000 000 ml @ 125 mls/hr IV . Q8H FELICE Rx#:[id number] Oral 780 240 Blood Product 620 Rc As-1 Unit 310 [id number] Rc As-3 Unit 310 [id number] Output: Urine 560 700 Other: Voiding Method Indwelling Catheter Indwelling Catheter Indwelling Catheter # Voids 3 - Exam General appearance: Revealed an 82-year-old white male, in no distress. Very pleasant. HET: PERRLA, EOMI. Moist mucous membranes. Head: Atraumatic, normocephalic. Neck: Right neck mass with dressing. Supple without lymphadenopathy. Trachea midline. Heart: S1 S2. Regular rate and rhythm. Lungs: No crackles or wheezes are heard. Abdomen: Soft, nontender, nondistended with bowel sounds. No peritoneal signs. No palpable organomegaly or masses. Extremities: Mayers clear edy urine. Neurological: No focal deficits. Strength and sensation are grossly intact. Psychiatric: Normal mood affect and mental status examination. - Labs CBC & Chem 7: 11/26/17 07:10 11/26/17 07:10 Labs: Abnormal Lab Results - Last 24 Hours (Table) 11/25/17 11/25/17 11/25/17 Range/Units 15:13 15:13 22:28 RBC 2.79 L 2.70 L (4.30-5.90) m/uL Hgb 8.3 L D 7.9 L (13.0-17.5) gm/dL Hct 24.8 L 24.0 L (39.0-53.0) % Lymphocytes # (1.0-4.8) k/uL Sodium 126 L (137-145) mmol/L Potassium (3.5-5.1) mmol/L Carbon Dioxide 19 L (22-30) mmol/L BUN 84 H* (9-20) mg/dL Creatinine 2.00 H (0.66-1.25) mg/dL Glucose 104 H (74-99) mg/dL Total Protein 4.6 L (6.3-8.2) g/dL Albumin 2.4 L (3.5-5.0) g/dL 11/26/17 11/26/17 Range/Units 07:10 07:10 RBC 2.60 L (4.30-5.90) m/uL Hgb 7.7 L (13.0-17.5) gm/dL Hct 23.3 L (39.0-53.0) % Lymphocytes # 0.6 L (1.0-4.8) k/uL Sodium 129 L (137-145) mmol/L Potassium 5.2 H (3.5-5.1) mmol/L Carbon Dioxide 20 L (22-30) mmol/L BUN 73 H (9-20) mg/dL Creatinine 2.13 H (0.66-1.25) mg/dL Glucose 107 H (74-99) mg/dL Total Protein (6.3-8.2) g/dL Albumin (3.5-5.0) g/dL Microbiology - Last 24 Hours (Table) 11/25/17 04:55 Urine Culture - Preliminary Urine,Catheterized Assessment and Plan Plan: Assessment: 1 acute hypovolemic shock secondary to acute blood loss, anemia, most likely secondary to GI blood losses, exact source and nature is not clear at this point patient was seen by gastroenterology, and placed on Protonix. And recommended mostly conservative measures considering the overall patient's clinical condition and status. 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 4 thoracic and abdominal aortic aneurysms 5 multiple malignancies as noted in HPI. 6 acute symptomatic anemia secondary to GI hemorrhage. 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 8 non-anion gap metabolic acidosis secondary to renal disease 9 acute on chronic kidney injury. Secondary to hypotension, secondary to hypovolemic shock, strongly doubt sepsis. 10 acute hyperkalemia secondary to acute kidney injury and metabolic acidosis. 11 history of abdominal aortic aneurysm and thoracic aortic aneurysm. Plan: Patient remains hemodynamically stable, no overt bleeding noted at this time. No active pulmonary/critical care issues at this time. senior care prognosis is poor. We will follow the patient on as-needed basis. I performed a history & physical examination of the patient and discussed their management with my nurse practitioner, Elise Marquez. I reviewed the nurse practitioner's note and agree with the documented findings and plan of care. Lung sounds are clear. Findings and the impression was discussed with the patient. I attest to the documentation by the nurse practitioner. Time with Patient: Less than 30
[2017-11-26 14:35] VITALS: BP 96/52; PULSE 62; TEMP 97.9
--- NOTE | 2017-11-26 15:34 | P.DS ---
Providers Date of admission: 11/24/17 19:37 Attending physician: Natalie Saucedo DO Consults: 11/24/17 19:37 Consult Physician Urgent Consulting Provider: Rick Durand Consult Reason/Comments: Oncological care Do you want consulting provider notified?: Yes 11/24/17 23:28 Consult Physician Routine Consulting Provider: Terry Singletary Consult Reason/Comments: HEIDY on CKD, hyponatremia Do you want consulting provider notified?: Yes, Notify in am 11/25/17 06:46 Consult Physician Stat Consulting Provider: Teagan Kelly Consult Reason/Comments: Hypotension Do you want consulting provider notified?: Yes Primary care physician: Rossana Navarro MD - Discharge Diagnosis(es) (1) Cancer of neck Status: Acute (2) Multiple malignancies Status: Chronic (3) Acute kidney injury superimposed on chronic kidney disease Status: Acute (4) Acute blood loss anemia Status: Acute (5) Back pain Status: Acute (6) UTI (urinary tract infection) Status: Acute (7) Abdominal aneurysm Status: Acute (8) Thoracic aortic aneurysm Status: Acute Hospital Course: The patient is a legally blind 82-year-old male with a past with a history of head, bladder and adrenal and neck cancer who has received palliative radiation therapy of the neck mass who presented here from clinic visit where he was being seen in follow-up for severe lower back pain due to metastatic disease. On arrival he was found to be hypotensive and in acute kidney injury superimposed on chronic kidney disease stage III of multifactorial etiology largely prerenal due to GI bleed hypotension dehydration poor oral intake superimposed ongoing MARQUES inhibitor use, he was also found to be hyponatremic and hyperkalemic with a non anion gap metabolic acidosis and was treated with IV insulin, D50 and a sodium bicarbonate IV push. Nephrology was consulted, his nephrotoxic agents were held as started on IV fluids and IV pressors to keep his MAP greater than 65, the patient was noted to have acute blood loss anemia secondary to upper GI bleed with an approximately 4 g drop in his hemoglobin and a positive Hemoccult. The patient was seen by GI service and determined not to be a candidate for any endoscopic exam given his comorbidities, specifically his aortic and thoracic aneurysms and he was started on IV PPI therapy with Protonix. The patient was typed and crossed and transfused a total of 2 units of packed RBCs with his hemoglobin stabilizing at 7.7. Oncology consult was requested who concurred with multiple consultants at the patient had an overall very poor prognosis. This information was explained to the patient and his Jazmin, both expressed the desire to be transitioned to comfort care refusing any ongoing medical therapy except for pain control. The patient's refused any recommendations for for hospice and repeatedly expressed the desire to take him home. The patient was subsequently discharged home with extremely poor prognosis with a prescription for Roxanol 10 mg every 6 when necessary pain, MiraLAX and Keflex 500 mg by mouth twice a day for 3 days. This discharge process took approximately 35 minutes Constitutional: No acute distress, conversant, pleasant Eyes: Anicteric sclerae, moist conjunctiva, no lid-lag, PERRLA ENMT: NC/AT,Oropharynx clear, no erythema, exudates Neck:Supple, FROM, no masses, or JVD, No carotid bruits; No thyromegaly. Bleeding parotid lesion with ABD dressing Lungs: Clear to auscultation, Clear to percussion, Normal respiratory effort, no accessory muscle use Cardiovascular: Heart regular in rate and rhythm, No murmurs, gallops, or rubs no peripheral edema Abdominal: Soft Nontender, nom distended, no guarding, no rebound or rigidity, Normoactive bowel sounds No hepatomegaly, No splenomegaly, No palpable mass No abdominal wall hernia noted Skin: Normal temperature, tone, texture, turgor, No induration No subcutaneous nodules, No rash, lesions, No ulcers Extremities:No digital cyanosis No clubbing, Pedal pulses intact and symmetrical Radial pulses intact and symmetrical Normal gait and station, No calf tenderness Psychiatric: Alert and oriented to person, place and time, Appropriate affect Intact judgement Neuro: Muscles Strength 5/5 in all 4 extremities, Sensation to light touch grossly present throughout, Cranial nerves II-XII grossly intact. No focal sensory deficits Patient Condition at Discharge: Serious Plan - Discharge Summary Discharge Rx Participant: No New Discharge Prescriptions: New MORPHINE ORAL MANPREET CONC 20mg/mL [Roxanol Oral Soln Conc 20MG/ML] 10 mg PO Q6HR PRN #30 ml PRN Reason: Pain Polyethylene Glycol 3350 [Miralax] 17 gm PO DAILY #30 packet Cephalexin [Keflex] 500 mg PO Q12HR #6 cap Discontinued Metoprolol Tartrate [Lopressor] 50 mg PO BID Lisinopril [Prinivil] 5 mg PO HS Ergocalciferol [Vitamin D2] 50,000 unit PO Q7D Discharge Medication List Cephalexin [Keflex] 500 mg PO Q12HR #6 cap 11/26/17 [Rx] MORPHINE ORAL MANPREET CONC 20mg/mL [Roxanol Oral Soln Conc 20MG/ML] 10 mg PO Q6HR PRN #30 ml 11/26/17 [Rx] Polyethylene Glycol 3350 [Miralax] 17 gm PO DAILY #30 packet 11/26/17 [Rx] Follow up Appointment(s)/Referral(s): Rossana Navarro MD [Primary Care Provider] - 1-2 days Patient Instructions/Handouts: Cephalexin (By mouth), Polyethylene Glycol 3350 (By mouth), Narcotic Pain Management (DC), Anemia (DC) Discharge Disposition: HOME SELF-CARE
[2017-11-26] MEDS ORDERED: SODIUM BICARBONATE TAB 650 MG TAB PO SCH (21:00)
[2017-11-29] MEDS ORDERED: ERGOCALCIFEROL 50,000 UNIT CAP PO SCH (12:00)
== END 2017-11-26 17:00 | disposition home or self-care (01) | DRG 811 ==
LOC: EC 16:17 → 6SEL 19:37 → 6ICU 11-25 07:17 → 5ONC 11-25 17:44
PROVIDERS: ADMIT Internal Medicine; ATTEND Internal Medicine
PROC: 30233N1 Transfusion of Nonautologous Red Blood Cells into Peripheral Vein, Percutaneous Approach (ICD-10-PCS; principal; 2017-11-25)
DX: D62 Acute posthemorrhagic anemia (principal); R57.1 Hypovolemic shock; N17.0 Acute kidney failure with tubular necrosis; E22.2 Syndrome of inappropriate secretion of antidiuretic hormone; E87.2 Acidosis; C79.89 Secondary malignant neoplasm of other specified sites; N39.0 Urinary tract infection, site not specified; K92.2 Gastrointestinal hemorrhage, unspecified; Z66 Do not resuscitate; E87.5 Hyperkalemia; E86.0 Dehydration; I71.2 Thoracic aortic aneurysm, without rupture; C67.9 Malignant neoplasm of bladder, unspecified; R31.9 Hematuria, unspecified; N18.3 Chronic kidney disease, stage 3 (moderate); G89.3 Neoplasm related pain (acute) (chronic); I12.9 Hypertensive chronic kidney disease with stage 1 through stage 4 chronic kidney disease, or unspecified chronic kidney disease; I71.4 Abdominal aortic aneurysm, without rupture; H54.8 Legal blindness, as defined in USA; M47.816 Spondylosis without myelopathy or radiculopathy, lumbar region; R19.7 Diarrhea, unspecified; R59.9 Enlarged lymph nodes, unspecified; M51.36 Other intervertebral disc degeneration, lumbar region; Z79.899 Other long term (current) drug therapy; Z85.89 Personal history of malignant neoplasm of other organs and systems; Z92.3 Personal history of irradiation; Z87.891 Personal history of nicotine dependence; Z85.528 Personal history of other malignant neoplasm of kidney; E27.9 Disorder of adrenal gland, unspecified
CPT/HCPCS: 36415; 70490; 71046; 71250; 72100; 74176; 80048; 80053; 81001; 82272; 82533; 82550; 82553; 82728; 83010; 83540; 83550; 83605; 83615; 83735; 83930; 83935; 84100; 84300; 84484; 85025; 85027; 85610; 85730; 86850; 86900; 86901; 86920; 87040; 87077; 87086; 87186; 93005; 93306; 96361; 96374; 96375; 99285